=== PATIENT | male | born 1935 | race Caucasian/White ===

== ENCOUNTER 2020-09-05 15:32 | Outpatient (CLI) | payer SELFPAY | END 2020-09-05 15:33 | disposition EMS.NT | LOC: EMS 15:32 | PROVIDERS: ATTEND Surgery | DX: R53.1 Weakness (principal); R51.9 Headache, unspecified; R53.83 Other fatigue ==

== ENCOUNTER 2021-03-10 22:45 | Outpatient (CLI) | payer MEDICARE, OTHER | END 2021-03-10 22:46 | disposition short-term general hospital (02) | LOC: EMS 22:45 | DX: R42 Dizziness and giddiness (principal); R11.2 Nausea with vomiting, unspecified | CPT/HCPCS: A0425; A0429 ==

== ENCOUNTER 2021-11-27 05:55 | Outpatient (CLI) | payer MEDICARE, OTHER | END 2021-11-27 05:56 | disposition critical access hospital (66) | LOC: EMS 05:55 | DX: R42 Dizziness and giddiness (principal); R11.0 Nausea; I10 Essential (primary) hypertension | CPT/HCPCS: A0425; A0427 ==

== ENCOUNTER 2021-11-27 06:11 | Emergency (ER) | payer MEDICARE, OTHER ==
[2021-11-27] MEDS ORDERED: MECLIZINE 12.5 MG TABLET PO STA (06:31)
[2021-11-27] MEDS ORDERED: SODIUM CHLORIDE 0.9% 500 ML IV STA (06:32)
--- NOTE | 2021-11-27 06:35 | ED Physician Documentation ---
History of Present Illness - Stated complaint Stated Complaint: VERTIGO - Chief complaint Chief Complaint: Neuro - Additonal information Additional information: Patient is 86-year-old male presenting to the emergency department with chief complaint of vertigo. Woke this morning with acute onset severe vertigo, described as the room spinning around him. Associated nausea without vomiting. Denies previous episodes of vertigo. Denies head trauma. Reports history of hypertension for which he takes carvedilol, dyslipidemia for which she is on a statin, pacer placement several years ago. Currently anticoagulated on Eliquis. Denies any tinnitus, hearing loss, slurred speech, facial droop, focal or lateralizing neurologic deficit. Does report difficulties with balance at home. PD PAST MEDICAL HISTORY - Allergies Allergies/Adverse Reactions: Allergies Allergy/AdvReac Type Severity Reaction Status Date / Time No Known Drug Allergies Allergy Verified 11/27/21 06:26 PD ED PE NORMAL - Vitals Vital signs reviewed: Yes - General General: Alert and oriented X 3 - HEENT HEENT: Atraumatic, PERRL, EOMI, Pharynx benign, Dentition benign, Other - Neck Neck: Supple, no meningeal sign, No JVD, No bruit - Cardiac Cardiac: RRR, No gallop - Respiratory Respiratory: No respiratory distress, Clear bilaterally - Abdomen Abdomen: Normal bowel sounds, Non tender - Male Male : Deferred - Rectal Rectal: Deferred - Back Back: No CVA TTP - Derm Derm: Normal color - Extremities Extremities: No deformity - Neuro Neuro: Alert and oriented X 3, clinical educator 2-12 intact, No motor deficit, No sensory deficit, Normal speech, Other (Easily elicitable horizontal nystagmus.) - Psych Psych: Normal mood Results - Vitals Vitals: Vital Signs - 24 hr 11/27/21 11/27/21 11/27/21 06:10 06:30 06:40 Temperature 35.8 C L Heart Rate 72 72 71 Respiratory 12 13 20 Rate Blood Pressure 207/103 H 207/103 H 204/90 H O2 Saturation 94 95 96 Oxygen O2 Source Room air - EKG (time done) 0613 Rate: Rate (enter#) (60) Rhythm: NSR [place]: LAD Intervals: Normal MA, LBBB Ischemia: Other (No concordant ST segment elevations, concordant ST segment depressions or excessive discordance in any lead.) - Labs Labs: Laboratory Tests 11/27/21 11/27/21 06:37 06:37 WBC 4.4 L RBC 4.69 L Hgb 13.8 L Hct 41.6 L MCV 88.7 MCH 29.4 MCHC 33.2 RDW 14.2 Plt Count 185 MPV 9.0 Neut # (Auto) 2.9 Lymph # (Auto) 0.7 L [place] # (Auto) 0.6 Eos # (Auto) 0.2 Baso # (Auto) 0.0 Absolute Nucleated RBC 0.00 Nucleated RBC % 0.0 PT 13.9 H INR 1.2 PD MEDICAL DECISION MAKING - ED course Complexity details: d/w patient ED course: Patient is 86-year-old male with past medical significant for hypertension, dyslipidemia, chronic anticoagulation, pacer placement presenting to the emergency department with acute onset vertigo. Afebrile, hemodynamically stable on arrival to the emergency department. Obvious elicitable nystagmus that was consistently horizontal and was made worse with movement of the head and neck. HEENT exam otherwise negative. TMs were clearly visualized and there is no indication of cerumen impaction, or middle ear effusion. No other focal or lateralizing neurologic deficits appreciated on exam. EKG as outlined above demonstrated a left bundle branch block morphology without indications of acute cardiac ischemia. I have ordered for comprehensive labs as well as head CT. I have ordered a small fluid bolus as well as meclizine. Patient received Zofran prior to arrival and did report that this helped his nausea somewhat. I will be signing him out to the oncoming physician, please see their documentation for further detail. Departure - Departure Clinical Impression: Vertigo
[2021-11-27 06:41] VITALS: BP 204/90
[2021-11-27 06:42] LABS: BASOPHILS % (AUTO) 0.2 %; EOSINOPHILS # (AUTO) 0.2 10^3/uL (0.0-0.7); EOSINOPHILS % (AUTO) 4.5 %; HCT - HEMATOCRIT 41.6 % (42.0-52.0); HGB - HEMOGLOBIN 13.8 g/dL (14.0-18.0); LYMPHOCYTES # (AUTO) 0.7 10^3/uL (1.5-3.5); LYMPHOCYTES % (AUTO) 15.4 %; MEAN CORPUSCULAR HEMOGLOBIN 29.4 pg (27.0-31.0); MEAN CORPUSCULAR HGB CONC 33.2 g/dL (32.0-36.0); MEAN CORPUSCULAR VOLUME 88.7 fL (80.0-94.0); MONOCYTES # (AUTO) 0.6 10^3/uL (0.0-1.0); MONOCYTES % (AUTO) 13.4 %; NEUTROPHILS # (AUTO) 2.9 10^3/uL (1.5-6.6); NEUTROPHILS % (AUTO) 66.3 %; PLT - PLATELET COUNT 185 10^3/uL (130-450); RED BLOOD COUNT 4.69 10^6/uL (4.70-6.10); RED CELL DISTRIBUTION WIDTH 14.2 % (12.0-15.0); WHITE BLOOD COUNT 4.4 x10^3/uL (4.8-10.8)
[2021-11-27 06:48] LABS: INR 1.2 (0.8-1.2); PT - PROTHROMBIN TIME 13.9 secs (9.9-12.6)
[2021-11-27 07:06] LABS: ALBUMIN 3.7 g/dL (3.2-5.5); ALBUMIN/GLOBULIN RATIO 1.1 (1.0-2.2); BILIRUBIN,TOTAL 1.2 mg/dL (0.2-1.0); CALCIUM 9.1 mg/dL (8.5-10.3); CREATININE 1.1 mg/dL (0.6-1.2); TOTAL PROTEIN 7.1 g/dL (6.7-8.2)
--- NOTE | 2021-11-27 07:36 | CT Report ---
PROCEDURE: HEAD WO INDICATIONS: Acute onset vertigo TECHNIQUE: Noncontrast 4.5 mm thick angled axial sections acquired from the foramen magnum to the vertex. For r adiation dose reduction, the following was used: automated exposure control, adjustment of mA and/or kV according to patient size. COMPARISON: None. FINDINGS: Image quality: Excellent. CSF spaces: Basal cisterns are patent. No extra-axial fluid collections. Ventricles are normal in size and shape. Brain: No midline shift. No intracranial masses or hemorrhage. Younger-white matter interface is norm al. Age-related volume loss and severe small vessel ischemic change. Bilateral intracranial carotid calcifications. Vertebral artery calcifications. Skull and face: Calvarium and visualized facial bones are intact, without suspicious lesions. Sinuses: Visualized sinuses and mastoids are clear. IMPRESSION: 1. No evidence acute stroke, hemorrhage, or mass. 2. Age-related volume loss and severe small vessel ischemic change. Reviewed by: Karlos Soni MD on 11/27/2021 7:34 AM PST Approved by: Karlos Soni MD on 11/27/2021 7:34 AM PST Station ID: [id number]
--- NOTE | 2021-11-27 07:55 | ED Physician Documentation ---
ED Addendum - Addendum Addendum: 11/27/21 07:54 Patient signed out to me by Dr. Cerrato at shift change. Briefly this is an 86-year-old gentleman who is fully anticoagulated who presented with abrupt onset vertigo upon waking. Of course central causes considered and a CT was ordered by Dr. Cerrato and negative for acute pathology. On my evaluation at 7:45 AM he is completely asymptomatic without persistent vertigo. He was ambulated in the hallway without any evidence of ataxia or disequilibrium. He was counseled on close return precautions. Disposition: Discharged home Condition: Stable Diagnosis: 1. Vertigo
== END 2021-11-27 08:13 | disposition home or self-care (01) ==
LOC: EDUNIT# → ED 06:11
DX: R42 Dizziness and giddiness (principal); R11.0 Nausea; I44.7 Left bundle-branch block, unspecified; I10 Essential (primary) hypertension; E78.5 Hyperlipidemia, unspecified; Z95.0 Presence of cardiac pacemaker; Z79.01 Long term (current) use of anticoagulants
CPT/HCPCS: 36415; 70450; 80053; 85025; 85610; 93005; 99283; 99284; A9270

== ENCOUNTER 2021-12-25 11:48 | Emergency (ER) | payer MEDICARE, OTHER ==
[2021-12-25] MEDS ORDERED: IOVERSOL 320 100 ML VIAL IVP ONE ×2 (13:03→15:16)
--- NOTE | 2021-12-25 13:05 | ED Physician Documentation ---
History of Present Illness - Stated complaint Stated Complaint: CONFUSION - Chief complaint Chief Complaint: Neuro - History obtained from History obtained from: Patient - History of Present Illness Timing: Today Pain level max: 0 Pain level now: 0 - Additonal information Additional information: 86-year-old male brought in by family today for confusion. They state that the confusion has been worsening over the past 6 months. He has been seen by his doctor several times for same. They recently changed doctors and moved from [facility] to [place]. They state that last night he could not remember what his cell phone was called. Today he forgot how to drive and appeared confused. This lasted about 20 to 30 minutes. The patient and his state that he has had increasing difficulty with memory for the past 6 months or so. They do not know what testing he has had performed. 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 They do not know if he has had any CAT scans or MRIs. Review of Systems Constitutional: denies: Fever, Chills GI: denies: Vomiting, Diarrhea Skin: denies: Rash Musculoskeletal: denies: Neck pain, Back pain Neurologic: denies: Focal weakness, Numbness, Seizure, Headache, Head injury, LOC PD PAST MEDICAL HISTORY - Past Medical History Cardiovascular: Hypertension, High cholesterol Psych: Depression, Anxiety Musculoskeletal: Osteoarthritis - Past Surgical History Past Surgical History: Yes Cardiovascular: Pacemaker, Angioplasty HEENT: Cataracts - Present Medications Home Medications: Ambulatory Orders Medication Instructions Recorded Confirmed Apixaban [Eliquis] 5 mg PO BID 11/27/21 11/27/21 Benazepril HCl 40 mg PO BID 11/27/21 11/27/21 Carvedilol [Coreg] 25 mg PO BID 11/27/21 11/27/21 Carvedilol [Coreg] 25 mg PO BID 11/27/21 11/27/21 Cyanocobalamin (Vitamin B-12) 500 mg PO DAILY 11/27/21 11/27/21 [Vitamin B-12] Fluoxetine HCl [Prozac] 20 mg PO DAILY 11/27/21 11/27/21 Meclizine HCl [Motion Sickness] 25 mg PO Q6H PRN #10 tablet 11/27/21 [place]-3/Dha/Epa/Fish Oil [Fish Oil 1 cap PO DAILY 11/27/21 11/27/21 1,000 mg Softgel] Ondansetron Odt [Zofran] 4 mg TL Q6H PRN #10 tablet 11/27/21 Oxybutynin [Ditropan] 5 mg PO BID 11/27/21 11/27/21 Rosuvastatin Calcium [Crestor] 10 mg PO DAILY 11/27/21 11/27/21 Spironolactone [Aldactone] 25 mg PO DAILY 11/27/21 11/27/21 glucosamine HCL [Glucosamine HCl] 1,500 mg PO DAILY 11/27/21 11/27/21 - Allergies Allergies/Adverse Reactions: Allergies Allergy/AdvReac Type Severity Reaction Status Date / Time No Known Drug Allergies Allergy Verified 12/25/21 12:03 - Social History Does the pt smoke?: No Smoking Status: Never smoker Does the pt drink ETOH?: Yes Does the pt have substance abuse?: No - Immunizations Immunizations are current?: Yes - POLST Patient has POLST: No PD ED PE NORMAL - Vitals Vital signs reviewed: Yes - General General: Alert and oriented X 3, No acute distress, Well developed/nourished - HEENT HEENT: PERRL, Moist mucous membranes, Pharynx benign - Neck Neck: Supple, no meningeal sign - Cardiac Cardiac: RRR, Strong equal pulses - Respiratory Respiratory: No respiratory distress, Clear bilaterally - Abdomen Abdomen: Soft, Non tender, Non distended - Derm Derm: Warm and dry - Extremities Extremities: No edema, No calf tenderness / cord - Neuro Neuro: Alert and oriented X 3, layboy operator 2-12 intact, No motor deficit, No sensory deficit, Normal speech Eye Opening: Spontaneous Motor: Obeys Commands Verbal: Oriented GCS Score: 15 - Psych Psych: Normal mood, Normal affect Results - Vitals Vitals: Vital Signs - 24 hr 12/25/21 12/25/21 12/25/21 11:58 14:11 14:56 Temperature 37.2 C Heart Rate 63 65 67 Respiratory 21 27 H 24 Rate Blood Pressure 190/87 H 203/80 H 165/91 H O2 Saturation 98 98 99 Oxygen O2 Source Room air - EKG (time done) 1254 Rate: Rate (enter#) (65) Rhythm: Paced [place]: Normal Intervals: Normal CT QRS: Normal Ischemia: Normal ST segments - Labs Labs: Laboratory Tests 12/25/21 12/25/21 12/25/21 13:02 13:02 13:54 WBC 7.1 RBC 4.39 L Hgb 12.9 L Hct 39.2 L MCV 89.3 MCH 29.4 MCHC 32.9 RDW 14.5 Plt Count 175 MPV 9.1 Neut # (Auto) 4.9 Lymph # (Auto) 1.0 L [place] # (Auto) 0.9 Eos # (Auto) 0.2 Baso # (Auto) 0.0 Absolute Nucleated RBC 0.00 Nucleated RBC % 0.0 Sodium 132 L Potassium 4.1 Chloride 98 L Carbon Dioxide 27 Anion Gap 7.0 BUN 25 H Creatinine 1.2 Estimated GFR (MDRD) 57 L Glucose 97 Calcium 9.0 Total Bilirubin 1.7 H AST 44 H ALT 52 Alkaline Phosphatase 126 H Total Protein 6.7 Albumin 3.5 Globulin 3.2 Albumin/Globulin Ratio 1.1 Lipase 27 Urine Color YELLOW Urine Clarity CLEAR Urine pH 6.0 Ur Specific [place] 1.010 Urine Protein NEGATIVE Urine Glucose (UA) NEGATIVE Urine Ketones NEGATIVE Urine Occult Blood SMALL H Urine Nitrite NEGATIVE Urine Bilirubin NEGATIVE Urine Urobilinogen 0.2 (NORMAL) Ur Leukocyte Esterase NEGATIVE Urine RBC 6-10 H Urine WBC 0-3 Ur Squamous Epith Cells RARE Squamous Urine Bacteria None Seen Ur Microscopic Review INDICATED Urine Culture Comments NOT INDICATED Urine Opiates Screen NEGATIVE Ur Oxycodone Screen NEGATIVE Urine Methadone Screen NEGATIVE Ur Propoxyphene Screen NEGATIVE Ur Barbiturates Screen NEGATIVE Ur Tricyclics Screen NEGATIVE Ur Phencyclidine Scrn NEGATIVE Ur Amphetamine Screen NEGATIVE U Methamphetamines Scrn NEGATIVE U Benzodiazepines Scrn NEGATIVE Urine Cocaine Screen NEGATIVE U Cannabinoids Screen NEGATIVE - Rads (name of study) angio head Radiology: Final report received, EMP read contemporaneously, See rad report angio neck Radiology: Final report received, EMP read contemporaneously, See rad report PD MEDICAL DECISION MAKING - ED course Complexity details: reviewed results, re-evaluated patient, considered differential, d/w patient, d/w family ED course: Patient is asymptomatic and at his usual baseline in the emergency department. Unclear etiology of his symptoms. Angiograms of the head and neck are without acute abnormality. NIH stroke scale of 0 currently. The symptoms have been progressing for the past 6 months. Possible dementia? We will have him follow- up with his doctor for outpatient MRI. MRI unavailable here today. Did discuss observation for serial neurological exams and MRI tomorrow. Patient and declined this. Patient will not drive until released by his doctor Patient and family counseled regarding signs and symptoms for which I believe and urgent re- evaluation would be necessary. Patient with good understanding of and agreement to plan and is comfortable going home at this time This document was made in part using voice recognition software. While efforts are made to proofread this document, sound alike and grammatical errors may occur. Departure - Departure Disposition: 01 Home, Self Care Clinical Impression: Altered mental status Qualifiers: Altered mental status type: transient alteration of awareness Qualified Code(s): R40.4 - Transient alteration of awareness Condition: Good Instructions: ED Altered Loc Follow-Up: Abrahan Hale MD [Primary Care Provider] - Tomorrow Comments: Please follow-up with Dr. Hale for further care. It is recommended that you have an MRI of your brain scheduled this week. Please return if he worsens. The angiogram of his head and neck do not show significant abnormalities at this time. The cause of the symptoms today is unclear. It is also possible that he is developing some dementia. You can discuss this further with Dr. Hale. He should not drive until cleared by Dr. Hale. Discharge Date/Time: 12/25/21 15:37 NIHSS - Time Time: 12:32 - Level of Consciousness Level of consciousness: (0) Alert, Keenly responsive LOC Questions: (0) Answers both Q's correct LOC Commands: (0) Performs both correctly - Gaze Best Gaze: (0) Normal - Visual Visual: (0) No loss - Facial Palsy Facial Palsy: (0) Normal, symmetrical movement - Motor Arms (both separate) Motor Arm (right): (0) No drift Motor Arm (left): (0) No drift - Motor Legs (both separate) Motor Leg (right): (0) No drift Motor Leg (left): (0) No drift - Limb Ataxia Limb Ataxia: (0) Absent - Sensory Sensory: (0) Normal - Best Language Best Language: (0) No aphasia - Dysarthria Dysarthria: (0) Normal - Extinction and Inattention (formally neg Extinction and inattention: (0) No abnormality - Total Score/Results Total Score/Result: 0
[2021-12-25 13:07] LABS: BASOPHILS % (AUTO) 0.1 %; EOSINOPHILS # (AUTO) 0.2 10^3/uL (0.0-0.7); EOSINOPHILS % (AUTO) 3.1 %; HCT - HEMATOCRIT 39.2 % (42.0-52.0); HGB - HEMOGLOBIN 12.9 g/dL (14.0-18.0); LYMPHOCYTES % (AUTO) 14.3 %; MEAN CORPUSCULAR HEMOGLOBIN 29.4 pg (27.0-31.0); MEAN CORPUSCULAR HGB CONC 32.9 g/dL (32.0-36.0); MEAN CORPUSCULAR VOLUME 89.3 fL (80.0-94.0); MEAN PLATELET VOLUME 9.1 fL (7.4-11.4); MONOCYTES # (AUTO) 0.9 10^3/uL (0.0-1.0); MONOCYTES % (AUTO) 12.9 %; NEUTROPHILS # (AUTO) 4.9 10^3/uL (1.5-6.6); NEUTROPHILS % (AUTO) 69.5 %; PLT - PLATELET COUNT 175 10^3/uL (130-450); RED BLOOD COUNT 4.39 10^6/uL (4.70-6.10); RED CELL DISTRIBUTION WIDTH 14.5 % (12.0-15.0); WHITE BLOOD COUNT 7.1 x10^3/uL (4.8-10.8)
[2021-12-25 13:38] LABS: ALBUMIN 3.5 g/dL (3.2-5.5); ALBUMIN/GLOBULIN RATIO 1.1 (1.0-2.2); BILIRUBIN,TOTAL 1.7 mg/dL (0.2-1.0); CREATININE 1.2 mg/dL (0.6-1.2); POTASSIUM 4.1 mmol/L (3.5-5.0); TOTAL PROTEIN 6.7 g/dL (6.7-8.2)
[2021-12-25 13:59] LABS: MUDS CUTOFF CONCENTRATIONS CUTOFF CONC BELOW:
[2021-12-25 14:03] LABS: BILIRUBIN,URINE NEGATIVE (NEGATIVE); GLUCOSE, URINE (UA) NEGATIVE (NEGATIVE); KETONES,URINE (UA) NEGATIVE (NEGATIVE); LEUKOCYTE ESTERASE, URINE NEGATIVE (NEGATIVE); NITRITE,URINE NEGATIVE (NEGATIVE); OCCULT BLOOD,URINE SMALL (NEGATIVE); PROTEIN,URINE NEGATIVE (NEGATIVE); UROBILINOGEN,URINE 0.2 (NORMAL) E.U./dL (NORMAL)
[2021-12-25 14:07] LABS: CLARITY,URINE CLEAR (CLEAR)
[2021-12-25 14:21] LABS: BACTERIA,URINE None Seen /HPF (None Seen); SQUAMOUS EPITHELIAL CELL,UR RARE Squamous (<= Few); WBC,URINE 0-3 /HPF (0-3)
[2021-12-25 14:22] LABS: AMPHETAMINE SCREEN,URINE NEGATIVE (NEGATIVE); BARBITURATE SCREEN,UR NEGATIVE (NEGATIVE); BENZODIAZEPINES SCREEN, URINE NEGATIVE (NEGATIVE); COCAINE SCREEN URINE NEGATIVE (NEGATIVE); METHADONE SCREEN, URINE NEGATIVE (NEGATIVE); METHAMPHETAMINES SCREEN, URINE NEGATIVE (NEGATIVE); OPIATE SCREEN, URINE NEGATIVE (NEGATIVE); OXYCODONE SCREEN, URINE NEGATIVE (NEGATIVE); PROPOXYPHENE SCREEN, URINE NEGATIVE (NEGATIVE); THC CANNABINOID SCREEN, URINE NEGATIVE (NEGATIVE); TRICYCLIC ANTIDEPRESSANT,URINE NEGATIVE (NEGATIVE)
[2021-12-25 14:57] VITALS: BP 165/91
--- NOTE | 2021-12-25 15:06 | CT Report ---
PROCEDURE: ANGIO NECK W INDICATIONS: disorientation CONTRAST: IV CONTRAST: Optiray 320 ml: 80 PO CONTRAST: *NO PO CONTRAST TECHNIQUE: After the administration of intravenous contrast, 1.5 mm axial sections acquired from the aortic arch to the [place] of [place]. Coronal 3-D maximum intensity projection (MIP) and/or volume rendering ref ormats were then performed. For radiation dose reduction, the following was used: automated exposur e control, adjustment of mA and/or kV according to patient size. COMPARISON: Correlation is made with the accompanying head CT angiogram, 12/25/2021. FINDINGS: Image quality: Excellent. Carotid system: The great vessels demonstrate a conventional anatomy as they arise from the aortic a rch. The origins of the common carotid arteries appear patent. The common carotid arteries demonstr ate normal calibers and courses. The bifurcation regions demonstrate focal atherosclerotic calcifica tion and irregularity, with approximately 50% narrowing on each side. The more distal internal caroti d arteries demonstrate normal course and caliber. Posterior circulation: The origins of the vertebral arteries appear patent. The more superior porti ons of the vertebral arteries demonstrate normal course and caliber. They join to form a normal appe aring basilar artery. Soft tissues: Visualized neck soft tissues demonstrate no suspicious abnormalities. The thyroid is normal in size and there are no incidental findings. Bones: No suspicious bony lesions. Visualized cervical spine appears normally aligned. Moderate c ervical spine degenerative changes are seen. IMPRESSION: No hemodynamically significant stenosis can be seen within the arteries of the neck. Focal atherosclerotic irregularity is seen involving the carotid bifurcation regions, with approximat tona 50% narrowing seen involving both proximal internal carotid arteries. The estimate of stenosis included in the report of the imaging study was calculated using the NASCET method Reviewed by: Luke Sandra MD on 12/25/2021 2:05 PM [facility] Approved by: Luke Sandra MD on 12/25/2021 2:05 PM [facility] Station ID: [id number]
--- NOTE | 2021-12-25 15:14 | CT Report ---
PROCEDURE: ANGIO HEAD W/WO INDICATIONS: disorientation CONTRAST: IV CONTRAST: Optiray 320 ml: 80 PO CONTRAST: *NO PO CONTRAST TECHNIQUE: Precontrast 4.5 mm thick angled axial sections acquired from the foramen magnum to the vertex. Afte r the administration of intravenous contrast, 1 mm thick sections acquired through the [place] is. Postcontrast 4.5 mm thick sections then re-acquired from the foramen magnum to the vertex. 3-di mensional [id number]-[id number] (MIP) and/or volume rendering reformats were acquired of the c entral intracranial vasculature. For radiation dose reduction, the following was used: automated ex posure control, adjustment of mA and/or kV according to patient size. COMPARISON: 11/27/2021. Correlation is also made with the accompanying neck CT angiogram, 12/25/2021. FINDINGS: Image quality: There is streak artifact seen through the skull base. Anterior circulation: Intracranial internal carotid arteries are normal in size and flow. Note is m sakina of a hypoplastic right A1 segment, with a correspondingly robust left A1 segment. 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 The flow within the paired anterior ce rebral arteries is otherwise normal and symmetric. The flow within the middle cerebral arteries is n ormal and symmetric. The anterior communicating artery is seen. No aneurysms are seen. Posterior circulation: There is focal atherosclerosis calcification, with approximately 50% narrowin g involving the right V4 segment. Visualized portions of the vertebral arteries otherwise demonstrat e normal caliber, and join to form a normal appearing basilar artery. Flow within the posterior cere bral arteries is normal and symmetric. No aneurysms are seen. CSF spaces: Ventricles are normal in size and shape. Basal cisterns are patent. No extra-axial flu id collections. Brain: No midline shift. No intracranial bleeds or masses. Younger-white matter interface appears int act. Age-appropriate brain parenchymal volume loss and chronic small vessel ischemic change can be s een. Skull and face: Calvarium and facial bones appear intact, without suspicious lesions. Sinuses: There is complete opacification seen of the right sphenoid sinus. At least moderate mucosal thickening is seen within the left frontal sinus and within the left anterior ethmoid air cells. Prom inent mucous retention cysts are seen within the left maxillary sinus. No significant abnormal fluid can be seen within the mastoid air cells. IMPRESSION: No significant, acute abnormality is seen. 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 Focal calcification can be seen involving the right V4 segment, with approximately 50% narrowing. If there is strong clinical concern for a stroke, please consider a dedicated brain MRI for further e valuation (assuming that there is no contraindication to MRI). Multifocal prominent paranasal sinus disease can be seen. Reviewed by: Luke Sandra MD on 12/25/2021 2:12 PM [facility] [place] Approved by: Luke Sandra MD on 12/25/2021 2:12 PM [facility] [place] Station ID: [id number]
== END 2021-12-25 15:37 | disposition home or self-care (01) ==
LOC: ED 11:48
DX: R40.4 Transient alteration of awareness (principal); I10 Essential (primary) hypertension; Z95.0 Presence of cardiac pacemaker; Z79.01 Long term (current) use of anticoagulants
CPT/HCPCS: 36415; 70496; 70498; 80053; 80306; 81001; 83690; 85025; 93005; 99283; 99284; Q9967; 81003; 87086

== ENCOUNTER 2022-06-15 21:51 | Outpatient (CLI) | payer MEDICARE, OTHER | END 2022-06-15 21:52 | disposition EMS.NT | LOC: EMS 21:51 | DX: R10.31 Right lower quadrant pain (principal); M25.551 Pain in right hip ==

== ENCOUNTER 2022-06-15 23:07 | Emergency (ER) | payer MEDICARE, OTHER ==
--- NOTE | 2022-06-16 00:51 | XRAY Report ---
PROCEDURE: Hip w/Pelvis 2-3V RT INDICATIONS: GLF 5 DAYS AGO, WORSENING R HIP/GROIN PAIN TECHNIQUE: AP pelvis with lateral view(s) of the right hip(s). COMPARISON: None. FINDINGS: Rotated exam which slightly limits sensitivity. No fracture or dislocation demonstrated. IMPRESSION: No evidence of fracture. Reviewed by: Ventura Marino MD on 06/16/2022 12:56 AM PDT Approved by: Ventura Marino MD on 06/16/2022 12:56 AM PDT Station ID: [id number]
--- NOTE | 2022-06-16 01:46 | CT Report ---
PROCEDURE: PELVIS WO INDICATIONS: SEVERE R HIP PAIN, NEGATIVE XR TECHNIQUE: Noncontrast 3 mm axial sections acquired through the bony pelvis, with coronal and sagittal reformatt ing. For radiation dose reduction, the following was used: automated exposure control, adjustment of mA and/or kV according to patient size. COMPARISON: None. FINDINGS: There is no fracture identified. The right psoas is markedly enlarged with adjacent fat stranding. Ap pearance is consistent with an intramuscular hematoma in the right psoas. There are some areas of dis crete hypodensity which likely represent pooling blood products of varying age. IMPRESSION: Right psoas intramuscular hematoma and edema. CT angiogram recommended to exclude active extravasatio n given the patient's history of anticoagulating pharmacotherapy. Reviewed by: Ventura Marino MD on 06/16/2022 1:45 AM PDT Approved by: Ventura Marino MD on 06/16/2022 1:45 AM PDT Station ID: [id number]
[2022-06-16 02:03] LABS: BASOPHILS % (AUTO) 0.4 %; EOSINOPHILS # (AUTO) 0.2 10^3/uL (0.0-0.7); EOSINOPHILS % (AUTO) 2.2 %; HCT - HEMATOCRIT 36.2 % (42.0-52.0); LYMPHOCYTES # (AUTO) 1.2 10^3/uL (1.5-3.5); LYMPHOCYTES % (AUTO) 17.6 %; MEAN CORPUSCULAR HEMOGLOBIN 29.4 pg (27.0-31.0); MEAN CORPUSCULAR HGB CONC 33.1 g/dL (32.0-36.0); MEAN CORPUSCULAR VOLUME 88.7 fL (80.0-94.0); MEAN PLATELET VOLUME 8.8 fL (7.4-11.4); MONOCYTES # (AUTO) 0.7 10^3/uL (0.0-1.0); MONOCYTES % (AUTO) 10.4 %; NEUTROPHILS # (AUTO) 4.6 10^3/uL (1.5-6.6); NEUTROPHILS % (AUTO) 68.7 %; PLT - PLATELET COUNT 217 10^3/uL (130-450); RED BLOOD COUNT 4.08 10^6/uL (4.70-6.10); RED CELL DISTRIBUTION WIDTH 14.2 % (12.0-15.0); WHITE BLOOD COUNT 6.8 x10^3/uL (4.8-10.8)
[2022-06-16 02:13] LABS: ALBUMIN 3.6 g/dL (3.2-5.5); BILIRUBIN,TOTAL 1.2 mg/dL (0.2-1.0); CALCIUM 9.3 mg/dL (8.5-10.3); CREATININE 1.3 mg/dL (0.6-1.2); TOTAL PROTEIN 7.1 g/dL (6.7-8.2)
[2022-06-16] MEDS ORDERED: oxyCODONE/ACET 5/325 Prepack 4 PO STA (03:50)
--- NOTE | 2022-06-16 03:50 | ED Physician Documentation ---
History of Present Illness - Stated complaint Stated Complaint: RT GROIN/HIP PX,HIP INJ - Chief complaint Chief Complaint: Trauma Ext - History obtained from History obtained from: Patient, Family - History of Present Illness Timing: How many days ago (5) - Additonal information Additional information: 87-year-old male with history of Eliquis use presents by private vehicle for evaluation of acute worsening of right hip/groin pain patient states that he fell 5 days ago [place] He was evaluated at that time by EMS staff, he declined any work-up and was sent home. He states that he had some pain at that time but it was bearable and he was able to walk. He states that today he sat for approximately 3 hours playing cards with his at home, when he stood up he felt an acute worsening of his hip and groin pain that was intolerable. He states that he is only able to bear weight with extreme difficulty and told his to bring him to the ER for evaluation. Patient denies numbness, weakness, tingling. Denies headache, neck pain, blurred vision, any other complaints at this time. Review of Systems Ten Systems: 10 systems reviewed and negative Constitutional: denies: Fever, Chills, Myalgias Cardiac: denies: Chest pain / pressure, Palpitations Respiratory: denies: Dyspnea, Cough Musculoskeletal: reports: Joint pain (R hip) Neurologic: denies: Generalized weakness, Focal weakness, Numbness, Headache, Head injury PD PAST MEDICAL HISTORY - Past Medical History Cardiovascular: Hypertension, High cholesterol Psych: Depression, Anxiety Musculoskeletal: Osteoarthritis - Past Surgical History Past Surgical History: Yes Cardiovascular: Pacemaker, Angioplasty HEENT: Cataracts - Present Medications Home Medications: Ambulatory Orders Medication Instructions Recorded Confirmed Apixaban [Eliquis] 5 mg PO BID 11/27/21 11/27/21 Benazepril HCl 40 mg PO BID 11/27/21 11/27/21 Carvedilol [Coreg] 25 mg PO BID 11/27/21 11/27/21 Carvedilol [Coreg] 25 mg PO BID 11/27/21 11/27/21 Cyanocobalamin (Vitamin B-12) 500 mg PO DAILY 11/27/21 11/27/21 [Vitamin B-12] Fluoxetine HCl [Prozac] 20 mg PO DAILY 11/27/21 11/27/21 Meclizine HCl [Motion Sickness] 25 mg PO Q6H PRN #10 tablet 11/27/21 [place]-3/Dha/Epa/Fish Oil [Fish Oil 1 cap PO DAILY 11/27/21 11/27/21 1,000 mg Softgel] Ondansetron Odt [Zofran] 4 mg TL Q6H PRN #10 tablet 11/27/21 Oxybutynin [Ditropan] 5 mg PO BID 11/27/21 11/27/21 Rosuvastatin Calcium [Crestor] 10 mg PO DAILY 11/27/21 11/27/21 Spironolactone [Aldactone] 25 mg PO DAILY 11/27/21 11/27/21 glucosamine HCL [Glucosamine HCl] 1,500 mg PO DAILY 11/27/21 11/27/21 Oxycodone HCl/Acetaminophen 1 - 2 each PO Q6H PRN #10 tablet 06/16/22 [Percocet 5-325 mg Tablet] - Allergies Allergies/Adverse Reactions: Allergies Allergy/AdvReac Type Severity Reaction Status Date / Time No Known Drug Allergies Allergy Verified 06/15/22 23:16 - Social History Does the pt smoke?: No Smoking Status: Never smoker Does the pt drink ETOH?: Yes Does the pt have substance abuse?: No - Immunizations Immunizations are current?: Yes - POLST Patient has POLST: No PD ED PE NORMAL - Vitals Vital signs reviewed: Yes - General General: Alert and oriented X 3, No acute distress, Well developed/nourished - HEENT HEENT: Atraumatic, PERRL, EOMI, Ears normal - Neck Neck: Supple, no meningeal sign, No bony TTP, C-Spine cleared by NEXUS criteria - Cardiac Cardiac: RRR, No murmur, Strong equal pulses - Respiratory Respiratory: No respiratory distress, Clear bilaterally - Abdomen Abdomen: Soft, Non tender, Non distended - Male 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 Old bruising R thigh) - Rectal Rectal: Deferred - Back Back: No CVA TTP, No spinal TTP - Derm Derm: Warm and dry, No rash - Extremities Extremities: No deformity, No tenderness to palpate, Normal ROM s pain, No edema, Other (No reproducible tenderness. Healing bruise R thigh) - Neuro Neuro: Alert and oriented X 3, time recorder 2-12 intact, No motor deficit, No sensory deficit - Psych Psych: Normal mood, Normal affect Results - Vitals Vitals: Vital Signs - 24 hr 06/15/22 06/16/22 23:10 04:04 Temperature 36.7 C Heart Rate 64 70 Respiratory 14 18 Rate Blood Pressure 119/61 115/65 O2 Saturation 97 98 Oxygen O2 Source Room air - Labs Labs: Laboratory Tests 06/16/22 06/16/22 01:56 01:56 WBC 6.8 RBC 4.08 L Hgb 12.0 L Hct 36.2 L MCV 88.7 MCH 29.4 MCHC 33.1 RDW 14.2 Plt Count 217 MPV 8.8 Neut # (Auto) 4.6 Lymph # (Auto) 1.2 L Teller # (Auto) 0.7 Eos # (Auto) 0.2 Baso # (Auto) 0.0 Absolute Nucleated RBC 0.00 Nucleated RBC % 0.0 Sodium 127 L Potassium 5.0 Chloride 95 L Carbon Dioxide 25 Anion Gap 7.0 BUN 31 H Creatinine 1.3 H Estimated GFR (MDRD) 52 L Glucose 179 H Calcium 9.3 Total Bilirubin 1.2 H AST 55 H ALT 59 Alkaline Phosphatase 190 H Total Protein 7.1 Albumin 3.6 Globulin 3.5 Albumin/Globulin Ratio 1.0 PD MEDICAL DECISION MAKING - ED course Complexity details: reviewed results, re-evaluated patient, considered differential, d/w patient ED course: Worsening pain after ground-level fall 5 days ago. Able to stand without too much difficulty. Old bruising noted on thigh. No obvious deformity, no reproducible tenderness to palpation. No hernias. X-ray negative. Will order CT. CT shows no acute fracture, however there is a hematoma in the psoas region on the right side. Given the patient's history of Eliquis radiologist recommended angio to evaluate for active bleed or expanding hematoma. Patient updated. CTA shows hematoma without active bleed. Patient given a copy of his CT results as they show a possible mass on one of his kidneys. Given prescription for pain . PCP follow-up advised as soon as possible. Patient states that he will be able to function at home with his 's assistance. Departure - Departure Disposition: Home, Self Care Clinical Impression: Psoas hematoma, right, secondary to anticoagulant therapy Qualifiers: Encounter type: initial encounter Qualified Code(s): S30.1XXA - Contusion of abdominal wall, initial encounter Condition: Stable Instructions: ED Hematoma Prescriptions: Oxycodone HCl/Acetaminophen [Percocet 5-325 mg Tablet] 1 - 2 each PO Q6H PRN #10 tablet PRN Reason: pain Comments: FOLLOW UP WITH YOUR PRIMARY CARE PHYSICIAN SOON POSSIBLE. TAKE ALL MEDICATIONS PRESCRIBED. AVOID STRENUOUS ACTIVITIES Discharge Date/Time: 06/16/22 04:04
[2022-06-16 04:05] VITALS: BP 115/65
--- NOTE | 2022-06-16 08:15 | CT Report ---
PROCEDURE: ANGIO ABDOMEN/PELVIS W INDICATIONS: PSOAS MUSCLE HEMATOMA ON ELIQUIS TECHNIQUE: After the administration of contrast, 5 mm thick sections acquired from the diaphragms to the sym physis. 5 mm thick coronal and sagittal reformats were acquired. For radiation dose reduction, the following was used: automated exposure control, adjustment of mA and/or kV according to patient size . COMPARISON: None. FINDINGS: Image quality: Excellent. ABDOMEN: Lung bases: Mild bibasilar atelectasis, otherwise the lung bases are clear. Heart size is mildly enl arged. Coronary arteries have atherosclerotic calcifications. There are calcifications of the aortic valve and mitral valve.. 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 No activ e extravasation is present. Mesenteric arteries: The celiac trunk is widely patent. However there are mild to moderate areas of n arrowing within the proximal hepatic artery and splenic artery. There is also mild to moderate lumina l narrowing at the origin of the superior mesenteric artery and severe luminal narrowing at the origi n of the inferior mesenteric artery. Moderate to severe narrowing of the proximal right renal artery is present with no significant luminal narrowing identified within the left renal artery. Right pelvi c arteries: Left pelvic arteries: Solid organs: Liver: The liver is slightly nodular in contour suggesting underlying hepatic disease with possible e diamond cirrhosis. Please correlate with clinical findings and labs. Biliary: Gallstones are identified. No wall thickening or pericholecystic fluid. [] Pancreas: The pancreas has no mass or ductal dilatation. No surrounding inflammation. Spleen: The spleen has a 1 cm indeterminate low-density lesion in the posterior aspect, likely benign . Adrenal glands: No hypertrophy or nodules. Kidneys: No obstructive calculus or hydronephrosis. No solid mass. Both kidneys have multiple exophyt ic simple renal cysts, the largest on the right measuring 5.7 x 6.1 x 4.3 cm. In addition there is a hyperdense lesion arising from the lateral pole of the right kidney which appears to demonstrate hete rogenous enhancement suspicious for a solid renal mass measuring 2.3 x 2.4 x 2.2 cm; however this cou ld also be a hemorrhagic cyst. Bowel: There is a small to moderate-sized hiatal hernia. The stomach is normal. The small bowel has a normal caliber and appearance. The terminal ileum is normal. The large bowel has diverticulosis wi thout evidence of diverticulitis. Free air/free fluid: No free air or free fluid. Abdominal wall: No abdominal wall mass or hernia. Retroperitoneum: There is enlargement of the right psoas, iliac's, and iliopsoas musculature consiste nt with history of intramuscular hematoma. This hematoma extends to the anterior musculature of the r ight thigh. Aorta and inferior vena cava are normal in size. Lymph nodes: No adenopathy. Bones: No suspicious bony lesions. No vertebral body compression fractures. PELVIS: Genitourinary: Bladder wall thickness is normal. Miscellaneous: No inguinal hernias or adenopathy. Bones: No suspicious bony lesions. No vertebral body compression fractures. IMPRESSION: 1. Hematoma involving the right psoas common iliac is, and iliopsoas musculature extending into the r ight anterior thigh. No active extravasation into this hematoma is identified. 2. 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 Extensive atheroscle rotic calcification throughout the aorta and its branches with multiple areas of stenosis as above. 3. Possible solid right renal mass, recommend further evaluation with renal protocol CT or MR. Ultras ound would also be helpful. 4. Additional findings as above. Findings above correspond with preliminary findings by [facility]. Reviewed by: Kaushik Fisher on 06/16/2022 8:13 AM PDT Approved by: Kaushik Fisher on 06/16/2022 8:13 AM PDT Station ID: [id number]
== END 2022-06-16 04:04 | disposition home or self-care (01) ==
LOC: ED 23:07
DX: S30.1XXA Contusion of abdominal wall, initial encounter (principal); V00.891A Fall from other pedestrian conveyance, initial encounter; Y93.89 Activity, other specified; Y92.520 Airport as the place of occurrence of the external cause; Z79.01 Long term (current) use of anticoagulants
CPT/HCPCS: 36415; 72192; 73502; 74174; 80053; 85025; 99284; Q9967

== ENCOUNTER 2022-09-12 10:36 | Emergency (ER) | payer MEDICARE, OTHER ==
--- OUTSIDE RECORDS SUMMARY | 2022-09-12 11:10 | EXTERNAL MEDICAL SUMMARY RPT | Continuity of Care Document ---
:1935 Author Organization [facility] [address] [place] [address] Phone Care Team Providers Name Role Phone Lokibrittani Mirta Unavailable Unavailable Abrahan Hale Unavailable Unavailable Allergies and Intolerances date description facility type (no date) [facility] (unknown) Encounters No information. Functional Status No information. Immunizations No information. Medications date description facility [id number] [facility] [id number] [facility] [id number] [id number]+0000 [facility] [id number]+0000 Escitalopram Oxalate [facility] [id number]+0000 Escitalopram Oxalate [facility] [id number] [facility] [id number]+0000 [facility] Problems No information. Procedures No information. Results/Labs test date author facility value unit interpret ation Result panel 1 (unknown) (no (unknown) (unknown) (no value) (units (unk nown) date) unknown) (unknown) (no (unknown) (unknown) Assessment and (units (unknown) date) Plan: unknown) (unknown) (no (unknown) (unknown) Status: Chronic (units (unknown) date) unknown) (unknown) (no (unknown) (unknown) (no value) (units (unk nown) date) unknown) (unknown) (no (unknown) (unknown) ARTHRALGIAS (units (un known) date) unknown) (unknown) (no (unknown) (unknown) ARTHRALGIAS, (units (u nknown) date) MALAISE unknown) (unknown) (no (unknown) (unknown) [place] (units ( unknown) date) [id number] unknown) (unknown) (no (unknown) (unknown) BRADYCARDIA (units (un known) date) unknown) (unknown) (no (unknown) (unknown) Draft (units (unkno wn) date) unknown) (unknown) (no (unknown) (unknown) MALAISE (units (unkno wn) date) unknown) (unknown) (no (unknown) (unknown) Sleep Visit (units (un known) date) unknown) (unknown) (no (unknown) (unknown) [facility] ([facility] unknown) (unknown) (no (unknown) (unknown) (no value) (units (unk nown) date) unknown) (unknown) (no (unknown) (unknown) Severe JACINTO. (units (un known) date) Initially unknown) presented to [facility] in 2006 with a history of snoring, (unknown) (no (unknown) (unknown) (1) Excessive (units ( unknown) date) daytime unknown) sleepiness: (unknown) (no (unknown) (unknown) (2) Obstructive (units (unknown) date) sleep apnea of unknown) adult: (unknown) (no (unknown) (unknown) [id number] (units (unkno wn) date) unknown) (unknown) (no (unknown) (unknown) 06/29/22 (units (unkno wn) date) unknown) (unknown) (no (unknown) (unknown) 1 month for (units (un known) date) compliance check unknown) (unknown) (no (unknown) (unknown) Affect: normal (units (unknown) date) affect unknown) (unknown) (no (unknown) (unknown) Age/Sex: 87 / M (units (unknown) date) Date of Service: unknown) (unknown) (no (unknown) (unknown) Allergies (units (unkn own) date) unknown) (unknown) (no (unknown) (unknown) Appearance: (units (un known) date) grossly normal unknown) (unknown) (no (unknown) (unknown) Assessment + (units (u nknown) date) Plan unknown) (unknown) (no (unknown) (unknown) Atrial (units (unkno wn) date) fibrillation with unknown) controlled ventricular rate (unknown) (no (unknown) (unknown) Attending Dr: (units ( unknown) date) Dmitri Duenas unknown) TECHNOLOGY ANALYST (unknown) (no (unknown) (unknown) Attitude: (units (unkn own) date) cooperative unknown) (unknown) (no (unknown) (unknown) Auto CPAP set (units ( unknown) date) pressures: 8-14 unknown) CWP (unknown) (no (unknown) (unknown) Brother (units (unknown) date) Heart attack unknown) (unknown) (no (unknown) (unknown) CPAP (8-14 cwp) (units (unknown) date) unknown) (unknown) (no (unknown) (unknown) Clinical Course (units (unknown) date) unknown) (unknown) (no (unknown) (unknown) Cognition: (units (unk nown) date) normal cognition unknown) (unknown) (no (unknown) (unknown) Condition is (units (u nknown) date) Onset: Chronic unknown) and ongoing condition (unknown) (no (unknown) (unknown) Conjunctivae: (units ( unknown) date) conjunctivae unknown) normal (unknown) (no (unknown) (unknown) Const (units (unkno wn) date) unknown) (unknown) (no (unknown) (unknown) DME: (units (unkno wn) date) unknown) (unknown) (no (unknown) (unknown) : 1935 (units (unknown) date) Acct:[id number] unknown) (unknown) (no (unknown) (unknown) Dept at (units (unkno wn) date) . unknown) (unknown) (no (unknown) (unknown) Details: (units (unkno wn) date) unknown) (unknown) (no (unknown) (unknown) Device data last (units (unknown) date) 90 days: unknown) (unknown) (no (unknown) (unknown) Device setup: (units ( unknown) date) unknown) (unknown) (no (unknown) (unknown) Documented By: (units (unknown) date) Dmitri Duenas unknown) [facility] 06/29/22 1453 (unknown) (no (unknown) (unknown) Drowsy driving (units (unknown) date) handout made unknown) available. (unknown) (no (unknown) (unknown) Ears: hearing (units ( unknown) date) grossly normal unknown) bilaterally (unknown) (no (unknown) (unknown) Effort + (units (unkno wn) date) Inspection: unknown) normal respiratory effort, able to speak in complete (unknown) (no (unknown) (unknown) Exam (units (unkno wn) date) unknown) (unknown) (no (unknown) (unknown) Exam Narrative (units (unknown) date) unknown) (unknown) (no (unknown) (unknown) Exam Narrative: (units (unknown) date) unknown) (unknown) (no (unknown) (unknown) Excessive (units (unkn own) date) daytime unknown) sleepiness (unknown) (no (unknown) (unknown) Eyes (units (unkno wn) date) unknown) (unknown) (no (unknown) (unknown) Family History (units (unknown) date) (Reviewed unknown) 12/27/21 @ 09:08 by Rah Pitts MD) (unknown) (no (unknown) (unknown) Father (units (unknown) date) Heart attack unknown) (unknown) (no (unknown) (unknown) General: (units (unkno wn) date) cooperative, unknown) comfortable and no acute distress (unknown) (no (unknown) (unknown) General: patient (units (unknown) date) alert, patient unknown) awake and patient oriented x3 (unknown) (no (unknown) (unknown) HENMT (units (unkno wn) date) unknown) (unknown) (no (unknown) (unknown) HPI Sleep Follow (units (unknown) date) Up unknown) (unknown) (no (unknown) (unknown) Head: normal to (units (unknown) date) inspection unknown) (unknown) (no (unknown) (unknown) History of (units (unk nown) date) adenoidectomy unknown) (unknown) (no (unknown) (unknown) History of (units (unk nown) date) hernia surgery unknown) (unknown) (no (unknown) (unknown) 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 An NPO will be performed to (unknown) (no (unknown) (unknown) Intake (units (unkno wn) date) unknown) (unknown) (no (unknown) (unknown) Loc: SLEEP (units (unk nown) date) unknown) (unknown) (no (unknown) (unknown) Mallampati score (units (unknown) date) of IV.? 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 (units (unkno wn) date) unknown) (unknown) (no (unknown) (unknown) Obstructive (units (un known) date) sleep apnea of unknown) adult (unknown) (no (unknown) (unknown) PAP therapy. (units (u nknown) date) unknown) (unknown) (no (unknown) (unknown) PFSH (units (unkno wn) date) unknown) (unknown) (no (unknown) (unknown) Pacemaker (units (unkn own) date) unknown) (unknown) (no (unknown) (unknown) Patient (units (unkno wn) date) instructed to use unknown) scheduled naps as needed for drowsiness safety (unknown) (no (unknown) (unknown) Patient is on (units ( unknown) date) nasal CPAP at unknown) 8-14 cwp and he is using it regularly. He is (unknown) (no (unknown) (unknown) Patient reported (units (unknown) date) a history of unknown) snoring and a disturbed sleep pattern. There is (unknown) (no (unknown) (unknown) Patient reports (units (unknown) date) difficulty unknown) falling asleep is denied, difficulty staying asleep (unknown) (no (unknown) (unknown) Patient was (units (un known) date) encouraged to unknown) continue PAP therapy at 8-14 cwp. (unknown) (no (unknown) (unknown) Patient was (units (un known) date) encouraged to unknown) maintain CPAP usage at a minimum of 4 hours a night, (unknown) (no (unknown) (unknown) Patient was (units (un known) date) instructed to unknown) avoid driving or operating heavy machinery when (unknown) (no (unknown) (unknown) Patient was (units (un known) date) instructed to unknown) return sooner if any questions or concerns arise. (unknown) (no (unknown) (unknown) Patient: (units (unkno wn) date) Rah Nair unknown) MR#: [id number] (unknown) (no (unknown) (unknown) Pertinent (units (unkn own) date) Positives/Negativ unknown) es (unknown) (no (unknown) (unknown) Plan (units (unkno wn) date) unknown) (unknown) (no (unknown) (unknown) Psych (units (unkno wn) date) unknown) (unknown) (no (unknown) (unknown) Reason For Visit (units (unknown) date) unknown) (unknown) (no (unknown) (unknown) Resp (units (unkno wn) date) unknown) (unknown) (no (unknown) (unknown) Return visit in (units (unknown) date) 6 months to unknown) assess continued response to PAP therapy (unknown) (no (unknown) (unknown) Sclera: sclerae (units (unknown) date) normal unknown) (unknown) (no (unknown) (unknown) Signed By: (units (unk nown) date) unknown) (unknown) (no (unknown) (unknown) Smoking Status: (units (unknown) date) Former smoker unknown) (unknown) (no (unknown) (unknown) Snoring (units (unkno wn) date) unknown) (unknown) (no (unknown) (unknown) Social History (units (unknown) date) unknown) (unknown) (no (unknown) (unknown) Speech and (units (unk nown) date) Movement: speech unknown) and movement normal (unknown) (no (unknown) (unknown) Speech: speech (units (unknown) date) normal unknown) (unknown) (no (unknown) (unknown) Surgical History (units (unknown) date) (Reviewed unknown) 12/27/21 @ 09:08 by Rah Pitts MD) (unknown) (no (unknown) (unknown) Symptoms (units (unkno wn) date) unknown) (unknown) (no (unknown) (unknown) The patient (units (un known) date) reported symptoms unknown) of excessive daytime sleepiness as evidenced by (unknown) (no (unknown) (unknown) This note may (units ( unknown) date) have been all or unknown) partially generated using voice recognition (unknown) (no (unknown) (unknown) Tobacco + (units (unkn own) date) Substance Use unknown) (unknown) (no (unknown) (unknown) Tobacco Status (units (unknown) date) unknown) (unknown) (no (unknown) (unknown) Treatment (units (unkn own) date) Effects: Pap unknown) Treatment Response/Side Effects: adherent to current PAP (unknown) (no (unknown) (unknown) Treatment (units (unkn own) date) Response/Side unknown) Affects (unknown) (no (unknown) (unknown) Usage: 100% with (units (unknown) date) 100% greater than unknown) 4 hours. Leak 5.6 L/min. AHIflow: 5.1 (unknown) (no (unknown) (unknown) Visit Reasons: (units (unknown) date) 6m -norco/we unknown) reschld from 06/27 (unknown) (no (unknown) (unknown) Visit type (FU): (units (unknown) date) follow up of JACINTO unknown) therapy Follow up evaluation of JACINTO therapy: (unknown) (no (unknown) (unknown) alcohol intake: (units (unknown) date) current unknown) (unknown) (no (unknown) (unknown) also a history (units (unknown) date) of hypertension unknown) and ischemic heart disease with a Mallampati (unknown) (no (unknown) (unknown) amlodipine (units (unk nown) date) Adverse Reaction unknown) (Mild, Verified 12/27/21 09:16) (unknown) (no (unknown) (unknown) assess (units (unkno wn) date) effectiveness of unknown) his CPAP therapy. Patient's compliance is excellent with (unknown) (no (unknown) (unknown) but increased (units ( unknown) date) benefit from more unknown) usage was also explained. (unknown) (no (unknown) (unknown) can be seen (units (un known) date) secondary to unknown) sleep apnea, medical conditions or can be a primary (unknown) (no (unknown) (unknown) carvedilol (units (unk nown) date) Adverse Reaction unknown) (Mild, Verified 12/27/21 09:16) (unknown) (no (unknown) (unknown) consentrating/fo (units (unknown) date) cusing durng the unknown) day (unknown) (no (unknown) (unknown) contribute to (units ( unknown) date) that. He feels he unknown) is sleeping well. (unknown) (no (unknown) (unknown) cough, denies (units ( unknown) date) nocturnal unknown) palpitations, denies heart burn symptoms at night, (unknown) (no (unknown) (unknown) currently (units (unkn own) date) reporting no unknown) difficulties with the machine, mask or pressure. He (unknown) (no (unknown) (unknown) daytime (units (unkno wn) date) sleepiness and unknown) fatigue. There is also a history of atrial fibrillation, (unknown) (no (unknown) (unknown) daytime sleeping (units (unknown) date) and an elevated unknown) Jay Em Sleepiness Scale score of 15/24.? This (unknown) (no (unknown) (unknown) demonstrates a (units (unknown) date) positive clinical unknown) response, by his optimal flowAHI. He still (unknown) (no (unknown) (unknown) denied, early (units ( unknown) date) morning awakening unknown) denied, spending time in bed not sleeping a (unknown) (no (unknown) (unknown) denies night (units (u nknown) date) sweats, reports unknown) morning headache, reports nasal congestion at (unknown) (no (unknown) (unknown) drowsy. (units (unkno wn) date) unknown) (unknown) (no (unknown) (unknown) ezetimibe [From (units (unknown) date) Vytorin] Adverse unknown) Reaction (Mild, Verified 12/27/21 09:16) (unknown) (no (unknown) (unknown) for the (units (unkno wn) date) sleepiness. He unknown) reports improved daytime sleepiness, but he is still (unknown) (no (unknown) (unknown) for which he (units (u nknown) date) started CPAP. unknown) After a brief course of PAP therapy, he transitioned (unknown) (no (unknown) (unknown) gasping (units (unkno wn) date) (denied), epworth unknown) sleep scale score (14/24), bruxism (denied), sleep (unknown) (no (unknown) (unknown) have occurred. (units (unknown) date) If there are any unknown) questions, please contact the Medical Records (unknown) (no (unknown) (unknown) he was again (units (un known) date) symptomatic, unknown) repeated his sleep study, and was found to have severe (unknown) (no (unknown) (unknown) household (units (unkn own) date) members: spouse unknown) (unknown) (no (unknown) (unknown) hypertension, (units ( unknown) date) hyperlipidemia, unknown) and ischemic heart disease, as well as a (unknown) (no (unknown) (unknown) little, normal (units (unknown) date) bedtime (2100), unknown) normal wake time (0700), sleep schedule, daytime (unknown) (no (unknown) (unknown) marital status: (units (unknown) date) unknown) (unknown) (no (unknown) (unknown) may occur. (units (unk nown) date) Occasional unknown) wrong-word or 'sound-alike' substitutions may have (unknown) (no (unknown) (unknown) napping again (units ( unknown) date) discussed. unknown) Drowsiness risks and symptoms reviewed. (unknown) (no (unknown) (unknown) napping daily (units ( unknown) date) with an Jay Em unknown) Sleepiness Scale score of 14/24. The timing of (unknown) (no (unknown) (unknown) nebivolol (units (unkn own) date) Adverse Reaction unknown) (Mild, Verified 12/27/21 09:16) (unknown) (no (unknown) (unknown) night, reports (units (unknown) date) dry mouth, denies unknown) sore throat in the morning, denies nocturnal (unknown) (no (unknown) (unknown) obstructive (units (un known) date) sleep apnea.?For unknown) this he has been on nasal CPAP at 8-12 cwp. He now (unknown) (no (unknown) (unknown) occurred due to (units (unknown) date) the inherent unknown) limitations of voice recognition software. Please (unknown) (no (unknown) (unknown) on PAP well, (units (u nknown) date) sleep quality unknown) okay and daytime sleepiness (unknown) (no (unknown) (unknown) overnight pulse (units (unknown) date) oximetry study unknown) (unknown) (no (unknown) (unknown) pets and (units (unkno wn) date) animals: Yes unknown) (dog) (unknown) (no (unknown) (unknown) positive (units (unkno wn) date) clinical response unknown) including no snoring.?His compliance data indicates (unknown) (no (unknown) (unknown) problem. He has (units (unknown) date) had a medical unknown) evaluation and his medications are being adjusted (unknown) (no (unknown) (unknown) read the note (units ( unknown) date) carefully and unknown) recognize, using context, where these substitutions (unknown) (no (unknown) (unknown) reports daytime (units (unknown) date) sleepiness, but unknown) has multiple other medical problems which (unknown) (no (unknown) (unknown) reports morning (units (unknown) date) headaches on unknown) occasion and has had some memory issues of late. (unknown) (no (unknown) (unknown) reports nocturia, (units (unknown) date) denies pain, unknown) denies dizziness in the morning or denies trouble (unknown) (no (unknown) (unknown) score of IV. For (units (unknown) date) this a diagnostic unknown) sleep study was performed and showed severe (unknown) (no (unknown) (unknown) sentences and no (units (unknown) date) audible wheezes unknown) (unknown) (no (unknown) (unknown) simvastatin (units (un known) date) [From Vytorin] unknown) Adverse Reaction (Mild, Verified 12/27/21 09:16) (unknown) (no (unknown) (unknown) software. (units (unkn own) date) Although every unknown) effort is made to edit content, collision center manager errors (unknown) (no (unknown) (unknown) somnolence (units (unk nown) date) frequent, snoring unknown) not appreciated, apnea not witnessed, choking or (unknown) (no (unknown) (unknown) talking (denied) (units (unknown) date) and sleep walking unknown) (denied) (unknown) (no (unknown) (unknown) that his (units (unkno wn) date) pressure should unknown) be increased. The patient is willing to continue with (unknown) (no (unknown) (unknown) to oral (units (unkno wn) date) appliance because unknown) he had chronic nasal obstruction/conge stion. By 2009 (unknown) (no (unknown) (unknown) treatment stable (units (unknown) date) on treatment unknown) Result panel 2 (unknown) (no (unknown) (unknown) (no value) (units (unk nown) date) unknown) (unknown) (no (unknown) (unknown) Assessment and (units (unknown) date) Plan: unknown) (unknown) (no (unknown) (unknown) Status: Chronic (units (unknown) date) unknown) (unknown) (no (unknown) (unknown) (no value) (units (unk nown) date) unknown) (unknown) (no (unknown) (unknown) ARTHRALGIAS (units (un known) date) unknown) (unknown) (no (unknown) (unknown) ARTHRALGIAS, (units (u nknown) date) MALAISE unknown) (unknown) (no (unknown) (unknown) [place], [place] (units ( unknown) date) [id number] unknown) (unknown) (no (unknown) (unknown) BRADYCARDIA (units (un known) date) unknown) (unknown) (no (unknown) (unknown) Draft (units (unkno wn) date) unknown) (unknown) (no (unknown) (unknown) MALAISE (units (unkno wn) date) unknown) (unknown) (no (unknown) (unknown) Sleep Visit (units (un known) date) unknown) (unknown) (no (unknown) (unknown) [facility] unknown) (unknown) (no (unknown) (unknown) (no value) (units (unk nown) date) unknown) (unknown) (no (unknown) (unknown) Severe JACINTO. (units (un known) date) Initially unknown) presented to [facility] in 2006 with a history of snoring, (unknown) (no (unknown) (unknown) (1) Obstructive (units (unknown) date) sleep apnea of unknown) adult: (unknown) (no (unknown) (unknown) (2) Excessive (units ( unknown) date) daytime unknown) sleepiness: (unknown) (no (unknown) (unknown) [id number] (units (unkno wn) date) unknown) (unknown) (no (unknown) (unknown) 06/29/22 (units (unkno wn) date) unknown) (unknown) (no (unknown) (unknown) .? This can (units (unknown) date) be seen secondary unknown) to sleep apnea, medical conditions or can be (unknown) (no (unknown) (unknown) Affect: normal (units (unknown) date) affect unknown) (unknown) (no (unknown) (unknown) Age/Sex: 87 / M (units (unknown) date) Date of Service: unknown) (unknown) (no (unknown) (unknown) Allergies (units (unkn own) date) unknown) (unknown) (no (unknown) (unknown) Appearance: (units (un known) date) grossly normal unknown) (unknown) (no (unknown) (unknown) Assessment + (units (u nknown) date) Plan unknown) (unknown) (no (unknown) (unknown) Atrial (units (unkno wn) date) fibrillation with unknown) controlled ventricular rate (unknown) (no (unknown) (unknown) Attending Dr: (units ( unknown) date) Dmitri Duenas unknown) TECHNOLOGY ANALYST (unknown) (no (unknown) (unknown) Attitude: (units (unkn own) date) cooperative unknown) (unknown) (no (unknown) (unknown) Auto CPAP set (units ( unknown) date) pressures: 8-14 unknown) CWP (unknown) (no (unknown) (unknown) Brother (units (unknown) date) Heart attack unknown) (unknown) (no (unknown) (unknown) CPAP (8-14 cwp) (units (unknown) date) unknown) (unknown) (no (unknown) (unknown) Chief Complaint: (units (unknown) date) Follow up CPAP unknown) therapy for JACINTO (unknown) (no (unknown) (unknown) Clinical Course (units (unknown) date) unknown) (unknown) (no (unknown) (unknown) Cognition: (units (unk nown) date) normal cognition unknown) (unknown) (no (unknown) (unknown) Compliance (units (unk nown) date) review in one unknown) month (unknown) (no (unknown) (unknown) Condition is (units (u nknown) date) Onset: Chronic unknown) and ongoing condition (unknown) (no (unknown) (unknown) Conjunctivae: (units ( unknown) date) conjunctivae unknown) normal (unknown) (no (unknown) (unknown) Const (units (unkno wn) date) unknown) (unknown) (no (unknown) (unknown) Currently using (units (unknown) date) CPAP 8-14 cwp. unknown) Compliance data was reviewed and implications of (unknown) (no (unknown) (unknown) DME: [place] (units (unk nown) date) unknown) (unknown) (no (unknown) (unknown) : 1935 (units (unknown) date) Acct:[id number] unknown) (unknown) (no (unknown) (unknown) Dept at (units (unkno wn) date) . unknown) (unknown) (no (unknown) (unknown) Details: (units (unkno wn) date) unknown) (unknown) (no (unknown) (unknown) Device data last (units (unknown) date) 90 days: unknown) (unknown) (no (unknown) (unknown) Device setup: (units ( unknown) date) 07/25/2021 unknown) (unknown) (no (unknown) (unknown) Documented By: (units (unknown) date) Dmitri Duenas unknown) [facility] 06/29/22 1453 (unknown) (no (unknown) (unknown) Drowsy driving (units (unknown) date) handout made unknown) available. (unknown) (no (unknown) (unknown) Ears: hearing (units ( unknown) date) grossly normal unknown) bilaterally (unknown) (no (unknown) (unknown) Effort + (units (unkno wn) date) Inspection: unknown) normal respiratory effort, able to speak in complete (unknown) (no (unknown) (unknown) Exam (units (unkno wn) date) unknown) (unknown) (no (unknown) (unknown) Exam Narrative (units (unknown) date) unknown) (unknown) (no (unknown) (unknown) Exam Narrative: (units (unknown) date) unknown) (unknown) (no (unknown) (unknown) Excessive (units (unkn own) date) daytime unknown) sleepiness (unknown) (no (unknown) (unknown) Eyes (units (unkno wn) date) unknown) (unknown) (no (unknown) (unknown) Family History (units (unknown) date) (Reviewed unknown) 12/27/21 @ 09:08 by Rah Pitts MD) (unknown) (no (unknown) (unknown) Father (units (unknown) date) Heart attack unknown) (unknown) (no (unknown) (unknown) General: (units (unkno wn) date) cooperative, unknown) comfortable and no acute distress (unknown) (no (unknown) (unknown) General: patient (units (unknown) date) alert, patient unknown) awake and patient oriented x3 (unknown) (no (unknown) (unknown) HENMT (units (unkno wn) date) unknown) (unknown) (no (unknown) (unknown) HPI (units (unkno wn) date) unknown) (unknown) (no (unknown) (unknown) HPI Sleep Follow (units (unknown) date) Up unknown) (unknown) (no (unknown) (unknown) Head: normal to (units (unknown) date) inspection unknown) (unknown) (no (unknown) (unknown) History of (units (unk nown) date) adenoidectomy unknown) (unknown) (no (unknown) (unknown) History of (units (unk nown) date) hernia surgery unknown) (unknown) (no (unknown) (unknown) 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 For this a unknown) diagnostic sleep study was performed and (unknown) (no (unknown) (unknown) Mallampati score (units (unknown) date) of IV.? 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 (units (unkno wn) date) unknown) (unknown) (no (unknown) (unknown) Obstructive (units (un known) date) sleep apnea of unknown) adult (unknown) (no (unknown) (unknown) PFSH (units (unkno wn) date) unknown) (unknown) (no (unknown) (unknown) Pacemaker (units (unkn own) date) unknown) (unknown) (no (unknown) (unknown) Pain (units (unkno wn) date) unknown) (unknown) (no (unknown) (unknown) Pain scale (units (unk nown) date) (1-10): 8 unknown) (unknown) (no (unknown) (unknown) Patient (units (unkno wn) date) instructed to use unknown) scheduled naps as needed for drowsiness safety (unknown) (no (unknown) (unknown) Patient is on (units ( unknown) date) nasal CPAP at unknown) 8-14 cwp and he is using it regularly. He is (unknown) (no (unknown) (unknown) Patient reports (units (unknown) date) difficulty unknown) falling asleep is denied, difficulty staying asleep (unknown) (no (unknown) (unknown) Patient was (units (un known) date) encouraged to unknown) continue PAP therapy at 8-16 cwp. (unknown) (no (unknown) (unknown) Patient was (units (un known) date) encouraged to unknown) maintain CPAP usage at a minimum of 4 hours a night, (unknown) (no (unknown) (unknown) Patient was (units (un known) date) instructed to unknown) avoid driving or operating heavy machinery when (unknown) (no (unknown) (unknown) Patient was (units (un known) date) instructed to unknown) return sooner if any questions or concerns arise. (unknown) (no (unknown) (unknown) Patient: (units (unkno wn) date) Rah Nair unknown) MR#: [id number] (unknown) (no (unknown) (unknown) Pertinent (units (unkn own) date) Positives/Negativ unknown) es (unknown) (no (unknown) (unknown) Plan (units (unkno wn) date) unknown) (unknown) (no (unknown) (unknown) Psych (units (unkno wn) date) unknown) (unknown) (no (unknown) (unknown) Reaching maximum (units (unknown) date) pressure, agrees unknown) to adjusted pressure. (unknown) (no (unknown) (unknown) Reaching maximum (units (unknown) date) pressure. Agrees unknown) to try adjusted pressure. (unknown) (no (unknown) (unknown) Reason For Visit (units (unknown) date) unknown) (unknown) (no (unknown) (unknown) Resp (units (unkno wn) date) unknown) (unknown) (no (unknown) (unknown) Return visit in (units (unknown) date) 6 months to unknown) assess continued response to PAP therapy (unknown) (no (unknown) (unknown) Sclera: sclerae (units (unknown) date) normal unknown) (unknown) (no (unknown) (unknown) Severe JACINTO. (units (unk nown) date) Patient reported unknown) a history of snoring and a disturbed sleep pattern. (unknown) (no (unknown) (unknown) Signed By: (units (unk nown) date) unknown) (unknown) (no (unknown) (unknown) Smoking Status: (units (unknown) date) Former smoker unknown) (unknown) (no (unknown) (unknown) Snoring (units (unkno wn) date) unknown) (unknown) (no (unknown) (unknown) Social History (units (unknown) date) unknown) (unknown) (no (unknown) (unknown) Speech and (units (unk nown) date) Movement: speech unknown) and movement normal (unknown) (no (unknown) (unknown) Speech: speech (units (unknown) date) normal unknown) (unknown) (no (unknown) (unknown) Surgical History (units (unknown) date) (Reviewed unknown) 12/27/21 @ 09:08 by Rah Pitts MD) (unknown) (no (unknown) (unknown) Symptoms (units (unkno wn) date) unknown) (unknown) (no (unknown) (unknown) The patient (units (un known) date) reported symptoms unknown) of excessive daytime sleepiness as evidenced by (unknown) (no (unknown) (unknown) There is also a (units (unknown) date) history of unknown) hypertension and ischemic heart disease with a (unknown) (no (unknown) (unknown) This note may (units ( unknown) date) have been all or unknown) partially generated using voice recognition (unknown) (no (unknown) (unknown) Tobacco + (units (unkn own) date) Substance Use unknown) (unknown) (no (unknown) (unknown) Tobacco Status (units (unknown) date) unknown) (unknown) (no (unknown) (unknown) Treatment (units (unkn own) date) Effects: Pap unknown) Treatment Response/Side Effects: adherent to current PAP (unknown) (no (unknown) (unknown) Treatment (units (unkn own) date) Response/Side unknown) Affects (unknown) (no (unknown) (unknown) Usage: 100% with (units (unknown) date) 100% greater than unknown) 4 hours. Leak 5.6 L/min. AHIflow: 5.1 (unknown) (no (unknown) (unknown) Visit Reasons: (units (unknown) date) 6m -norco/we unknown) reschld from 06/27 (unknown) (no (unknown) (unknown) Visit type (FU): (units (unknown) date) follow up of JACINTO unknown) therapy Follow up evaluation of JACINTO therapy: (unknown) (no (unknown) (unknown) Was having (units (unkn own) date) morning headaches unknown) on occasion and memory issues. An NPO was performed (unknown) (no (unknown) (unknown) a primary (units (unkn own) date) problem. He unknown) reports improved daytime sleepiness, but he is still (unknown) (no (unknown) (unknown) alcohol intake: (units (unknown) date) current unknown) (unknown) (no (unknown) (unknown) amlodipine (units (unk nown) date) Adverse Reaction unknown) (Mild, Verified 06/29/22 15:05) (unknown) (no (unknown) (unknown) and symptoms (units (u nknown) date) reviewed. unknown) (unknown) (no (unknown) (unknown) but increased (units ( unknown) date) benefit from more unknown) usage was also explained. (unknown) (no (unknown) (unknown) carvedilol (units (unk nown) date) Adverse Reaction unknown) (Mild, Verified 06/29/22 15:05) (unknown) (no (unknown) (unknown) consentrating/fo (units (unknown) date) cusing durng the unknown) day (unknown) (no (unknown) (unknown) continue with (units ( unknown) date) PAP therapy. unknown) (unknown) (no (unknown) (unknown) contribute to (units ( unknown) date) that. He feels he unknown) is sleeping well. (unknown) (no (unknown) (unknown) cough, denies (units ( unknown) date) nocturnal unknown) palpitations, denies heart burn symptoms at night, (unknown) (no (unknown) (unknown) currently (units (unkn own) date) reporting no unknown) difficulties with the machine, mask or pressure. He (unknown) (no (unknown) (unknown) daytime (units (unkno wn) date) sleepiness and unknown) fatigue. There is also a history of atrial fibrillation, (unknown) (no (unknown) (unknown) daytime sleeping (units (unknown) date) and an originally unknown) elevated Jay Em Sleepiness Scale score of (unknown) (no (unknown) (unknown) demonstrates a (units (unknown) date) positive clinical unknown) response, by his optimal flowAHI. He still (unknown) (no (unknown) (unknown) denied, early (units ( unknown) date) morning awakening unknown) denied, spending time in bed not sleeping a (unknown) (no (unknown) (unknown) denies night (units (u nknown) date) sweats, reports unknown) morning headache, reports nasal congestion at (unknown) (no (unknown) (unknown) drowsy. (units (unkno wn) date) unknown) (unknown) (no (unknown) (unknown) events below (units (u nknown) date) 90%. unknown) (unknown) (no (unknown) (unknown) ezetimibe [From (units (unknown) date) Vytorin] Adverse unknown) Reaction (Mild, Verified 06/29/22 15:05) (unknown) (no (unknown) (unknown) findings (units (unkno wn) date) discussed. unknown) Patient's compliance is excellent with positive clinical (unknown) (no (unknown) (unknown) for which he (units (u nknown) date) started CPAP. unknown) After a brief course of PAP therapy, he transitioned (unknown) (no (unknown) (unknown) gasping (units (unkno wn) date) (denied), epworth unknown) sleep scale score (11/11), bruxism (denied), sleep (unknown) (no (unknown) (unknown) have occurred. (units (unknown) date) If there are any unknown) questions, please contact the Medical Records (unknown) (no (unknown) (unknown) he was again (units (un known) date) symptomatic, unknown) repeated his sleep study, and was found to have severe (unknown) (no (unknown) (unknown) household (units (unkn own) date) members: spouse unknown) (unknown) (no (unknown) (unknown) hypertension, (units ( unknown) date) hyperlipidemia, unknown) and ischemic heart disease, as well as a (unknown) (no (unknown) (unknown) little, normal (units (unknown) date) bedtime (2100), unknown) normal wake time (0700), sleep schedule, daytime (unknown) (no (unknown) (unknown) marital status: (units (unknown) date) unknown) (unknown) (no (unknown) (unknown) may occur. (units (unk nown) date) Occasional unknown) wrong-word or 'sound-alike' substitutions may have (unknown) (no (unknown) (unknown) napping daily (units ( unknown) date) with an Jay Em unknown) Sleepiness Scale score of 12/24. Drowsiness risks (unknown) (no (unknown) (unknown) nebivolol (units (unkn own) date) Adverse Reaction unknown) (Mild, Verified 06/29/22 15:05) (unknown) (no (unknown) (unknown) night, reports (units (unknown) date) dry mouth, denies unknown) sore throat in the morning, denies nocturnal (unknown) (no (unknown) (unknown) occurred due to (units (unknown) date) the inherent unknown) limitations of voice recognition software. Please (unknown) (no (unknown) (unknown) on PAP well, (units (u nknown) date) sleep quality unknown) okay and daytime sleepiness (unknown) (no (unknown) (unknown) pets and (units (unkno wn) date) animals: Yes unknown) (dog) (unknown) (no (unknown) (unknown) read the note (units ( unknown) date) carefully and unknown) recognize, using context, where these substitutions (unknown) (no (unknown) (unknown) reports daytime (units (unknown) date) sleepiness, but unknown) has multiple other medical problems which (unknown) (no (unknown) (unknown) reports nocturia, (units (unknown) date) denies pain, unknown) denies dizziness in the morning or denies trouble (unknown) (no (unknown) (unknown) response (units (unkno wn) date) including no unknown) snoring and good AHIflow.?The patient is willing to (unknown) (no (unknown) (unknown) sentences and no (units (unknown) date) audible wheezes unknown) (unknown) (no (unknown) (unknown) showed severe (units ( unknown) date) obstructive sleep unknown) apnea.?For this he has been on nasal CPAP. (unknown) (no (unknown) (unknown) simvastatin (units (un known) date) [From Vytorin] unknown) Adverse Reaction (Mild, Verified 06/29/22 15:05) (unknown) (no (unknown) (unknown) software. (units (unkn own) date) Although every unknown) effort is made to edit content, collision center manager errors (unknown) (no (unknown) (unknown) somnolence (units (unk nown) date) frequent, snoring unknown) not appreciated, apnea not witnessed, choking or (unknown) (no (unknown) (unknown) talking (denied) (units (unknown) date) and sleep walking unknown) (denied) (unknown) (no (unknown) (unknown) to assess (units (unkn own) date) effectiveness of unknown) his CPAP therapy and he was not having desaturation (unknown) (no (unknown) (unknown) to oral (units (unkno wn) date) appliance because unknown) he had chronic nasal obstruction/conge stion. By 2009 (unknown) (no (unknown) (unknown) treatment stable (units (unknown) date) on treatment unknown) Result panel 3 (unknown) (no (unknown) (unknown) (no value) (units (unk nown) date) unknown) (unknown) (no (unknown) (unknown) Assessment and (units (unknown) date) Plan: unknown) (unknown) (no (unknown) (unknown) Status: Chronic (units (unknown) date) unknown) (unknown) (no (unknown) (unknown) (no value) (units (unk nown) date) unknown) (unknown) (no (unknown) (unknown) 06/29/22 (units (unkno wn) date) unknown) (unknown) (no (unknown) (unknown) 15:09 (units (unkno wn) date) unknown) (unknown) (no (unknown) (unknown) ARTHRALGIAS (units (un known) date) unknown) (unknown) (no (unknown) (unknown) ARTHRALGIAS, (units (u nknown) date) MALAISE unknown) (unknown) (no (unknown) (unknown) [place], [place] (units ( unknown) date) [id number] unknown) (unknown) (no (unknown) (unknown) BRADYCARDIA (units (un known) date) unknown) (unknown) (no (unknown) (unknown) Draft (units (unkno wn) date) unknown) (unknown) (no (unknown) (unknown) MALAISE (units (unkno wn) date) unknown) (unknown) (no (unknown) (unknown) Sleep Visit (units (un known) date) unknown) (unknown) (no (unknown) (unknown) [facility] unknown) (unknown) (no (unknown) (unknown) (no value) (units (unk nown) date) unknown) (unknown) (no (unknown) (unknown) Severe JACITNO. (units (un known) date) Initially unknown) presented to [facility] [place] in 2006 with a history of snoring, (unknown) (no (unknown) (unknown) (1) Obstructive (units (unknown) date) sleep apnea of unknown) adult: (unknown) (no (unknown) (unknown) (2) Excessive (units ( unknown) date) daytime unknown) sleepiness: (unknown) (no (unknown) (unknown) 0 = Would never (units (unknown) date) doze or sleep, 1 unknown) = Slight chance of dozing or sleeping, 2 = (unknown) (no (unknown) (unknown) [id number] (units (unkno wn) date) unknown) (unknown) (no (unknown) (unknown) 01/25/21 (units (unkno wn) date) [History unknown) Confirmed 06/29/22] (unknown) (no (unknown) (unknown) 06/29/22 (units (unkno wn) date) unknown) (unknown) (no (unknown) (unknown) 06/29/22] (units (unkn own) date) unknown) (unknown) (no (unknown) (unknown) 04/11.? This can (units (unknown) date) be seen secondary unknown) to sleep apnea, medical conditions or can be a (unknown) (no (unknown) (unknown) Affect: normal (units (unknown) date) affect unknown) (unknown) (no (unknown) (unknown) Age/Sex: 87 / M (units (unknown) date) Date of Service: unknown) (unknown) (no (unknown) (unknown) Allergies (units (unkn own) date) unknown) (unknown) (no (unknown) (unknown) Appearance: (units (un known) date) grossly normal unknown) (unknown) (no (unknown) (unknown) Assessment + (units (u nknown) date) Plan unknown) (unknown) (no (unknown) (unknown) Atrial (units (unkno wn) date) fibrillation with unknown) controlled ventricular rate (unknown) (no (unknown) (unknown) Attending Dr: (units ( unknown) date) Dmitri Duenas unknown) TECHNOLOGY ANALYST (unknown) (no (unknown) (unknown) Attitude: (units (unkn own) date) cooperative unknown) (unknown) (no (unknown) (unknown) Auto CPAP set (units ( unknown) date) pressures: 8-14 unknown) CWP (unknown) (no (unknown) (unknown) BMI 26.4 (units (unkno wn) date) unknown) (unknown) (no (unknown) (unknown) BP 158/91 H (units (un known) date) unknown) (unknown) (no (unknown) (unknown) Being a (units (unkno wn) date) passenger in a unknown) motor vehicle for an hour or so: 0 = Never (None) (unknown) (no (unknown) (unknown) Blood Pressure (units (unknown) date) Location Lt unknown) brachial (unknown) (no (unknown) (unknown) Brother (units (unknown) date) Heart attack unknown) (unknown) (no (unknown) (unknown) CPAP (8-14 cwp) (units (unknown) date) unknown) (unknown) (no (unknown) (unknown) Chief Complaint: (units (unknown) date) Follow up CPAP unknown) therapy for JACINTO (unknown) (no (unknown) (unknown) Clinical Course (units (unknown) date) unknown) (unknown) (no (unknown) (unknown) Cognition: (units (unk nown) date) normal cognition unknown) (unknown) (no (unknown) (unknown) Compliance (units (unk nown) date) review in one unknown) month (unknown) (no (unknown) (unknown) Condition is (units (u nknown) date) Onset: Chronic unknown) and ongoing condition (unknown) (no (unknown) (unknown) Confirmed (units (unkn own) date) 06/29/22] unknown) (unknown) (no (unknown) (unknown) Conjunctivae: (units ( unknown) date) conjunctivae unknown) normal (unknown) (no (unknown) (unknown) Const (units (unkno wn) date) unknown) (unknown) (no (unknown) (unknown) Currently using (units (unknown) date) CPAP 8-14 cwp. unknown) Compliance data was reviewed and implications of (unknown) (no (unknown) (unknown) DME: [place] (units (unk nown) date) unknown) (unknown) (no (unknown) (unknown) : 1935 (units (unknown) date) Acct:[id number] unknown) (unknown) (no (unknown) (unknown) Dept at (units (unkno wn) date) . unknown) (unknown) (no (unknown) (unknown) Details: (units (unkno wn) date) unknown) (unknown) (no (unknown) (unknown) Device data last (units (unknown) date) 90 days: unknown) (unknown) (no (unknown) (unknown) Device setup: (units ( unknown) date) 07/25/2021 unknown) (unknown) (no (unknown) (unknown) Documented By: (units (unknown) date) Dmitri Duenas unknown) TECHNOLOGY ANALYST 06/29/22 1453 (unknown) (no (unknown) (unknown) Drowsy driving (units (unknown) date) handout made unknown) available. (unknown) (no (unknown) (unknown) Ears: hearing (units ( unknown) date) grossly normal unknown) bilaterally (unknown) (no (unknown) (unknown) Effort + (units (unkno wn) date) Inspection: unknown) normal respiratory effort, able to speak in complete (unknown) (no (unknown) (unknown) Jay Em Score: (units (unknown) date) 12 unknown) (unknown) (no (unknown) (unknown) Jay Em (units (unkno wn) date) Sleepiness Scale unknown) (unknown) (no (unknown) (unknown) Exam (units (unkno wn) date) unknown) (unknown) (no (unknown) (unknown) Exam Narrative (units (unknown) date) unknown) (unknown) (no (unknown) (unknown) Exam Narrative: (units (unknown) date) unknown) (unknown) (no (unknown) (unknown) Excessive (units (unkn own) date) daytime unknown) sleepiness (unknown) (no (unknown) (unknown) Eyes (units (unkno wn) date) unknown) (unknown) (no (unknown) (unknown) Family History (units (unknown) date) (Reviewed unknown) 12/27/21 @ 09:08 by Rah Pitts MD) (unknown) (no (unknown) (unknown) Father (units (unknown) date) Heart attack unknown) (unknown) (no (unknown) (unknown) General: (units (unkno wn) date) cooperative, unknown) comfortable and no acute distress (unknown) (no (unknown) (unknown) General: patient (units (unknown) date) alert, patient unknown) awake and patient oriented x3 (unknown) (no (unknown) (unknown) HENMT (units (unkno wn) date) unknown) (unknown) (no (unknown) (unknown) HPI (units (unkno wn) date) unknown) (unknown) (no (unknown) (unknown) HPI Sleep Follow (units (unknown) date) Up unknown) (unknown) (no (unknown) (unknown) Head: normal to (units (unknown) date) inspection unknown) (unknown) (no (unknown) (unknown) Height 6 ft 1.5 (units (unknown) date) in unknown) (unknown) (no (unknown) (unknown) History of (units (unk nown) date) adenoidectomy unknown) (unknown) (no (unknown) (unknown) History of (units (unk nown) date) hernia surgery unknown) (unknown) (no (unknown) (unknown) 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 For this a unknown) diagnostic sleep study was performed and (unknown) (no (unknown) (unknown) Mallampati score (units (unknown) date) of IV.? 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) associated with unknown) adverse incidents (unknown) (no (unknown) (unknown) Medications (units (un known) date) unknown) (unknown) (no (unknown) (unknown) Moderate chance (units (unknown) date) of dozing or unknown) sleeping, 3 = High chance of dozing or sleeping (unknown) (no (unknown) (unknown) Mood: congruent (units (unknown) date) mood unknown) (unknown) (no (unknown) (unknown) Neck (units (unkno wn) date) unknown) (unknown) (no (unknown) (unknown) Neck: normal (units (u nknown) date) visual inspection unknown) (unknown) (no (unknown) (unknown) Neuro (units (unkno wn) date) unknown) (unknown) (no (unknown) (unknown) JACINTO. (units (unkno wn) date) unknown) (unknown) (no (unknown) (unknown) Obstructive (units (un known) date) sleep apnea of unknown) adult (unknown) (no (unknown) (unknown) PFSH (units (unkno wn) date) unknown) (unknown) (no (unknown) (unknown) Pacemaker (units (unkn own) date) unknown) (unknown) (no (unknown) (unknown) Pain (units (unkno wn) date) unknown) (unknown) (no (unknown) (unknown) Pain scale (units (unk nown) date) (1-10): 8 unknown) (unknown) (no (unknown) (unknown) Patient (units (unkno wn) date) instructed to use unknown) scheduled naps as needed for drowsiness safety (unknown) (no (unknown) (unknown) Patient is on (units ( unknown) date) nasal CPAP at unknown) 8-14 cwp and he is using it regularly. He is (unknown) (no (unknown) (unknown) Patient reports (units (unknown) date) difficulty unknown) falling asleep is denied, difficulty staying asleep (unknown) (no (unknown) (unknown) Patient was (units (un known) date) encouraged to unknown) continue PAP therapy at 8-16 cwp. (unknown) (no (unknown) (unknown) Patient was (units (un known) date) encouraged to unknown) maintain CPAP usage at a minimum of 4 hours a night, (unknown) (no (unknown) (unknown) Patient was (units (un known) date) instructed to unknown) avoid driving or operating heavy machinery when (unknown) (no (unknown) (unknown) Patient was (units (un known) date) instructed to unknown) return sooner if any questions or concerns arise. (unknown) (no (unknown) (unknown) Patient: (units (unkno wn) date) Rah Nair unknown) MR#: [id number] (unknown) (no (unknown) (unknown) Pertinent (units (unkn own) date) Positives/Negativ unknown) es (unknown) (no (unknown) (unknown) Plan (units (unkno wn) date) unknown) (unknown) (no (unknown) (unknown) Position Sitting (units (unknown) date) unknown) (unknown) (no (unknown) (unknown) Psych (units (unkno wn) date) unknown) (unknown) (no (unknown) (unknown) Pulse 63 (units (unkno wn) date) unknown) (unknown) (no (unknown) (unknown) Pulse Source (units (u nknown) date) Monitor unknown) (unknown) (no (unknown) (unknown) Questionnaires (units (unknown) date) unknown) (unknown) (no (unknown) (unknown) Reaching maximum (units (unknown) date) pressure, agrees unknown) to adjusted pressure. (unknown) (no (unknown) (unknown) Reaching maximum (units (unknown) date) pressure. Agrees unknown) to try adjusted pressure. (unknown) (no (unknown) (unknown) Reason For Visit (units (unknown) date) unknown) (unknown) (no (unknown) (unknown) ResMed AirSense (units (unknown) date) 10 12/27/21 unknown) [History Confirmed 06/29/22] (unknown) (no (unknown) (unknown) Resp (units (unkno wn) date) unknown) (unknown) (no (unknown) (unknown) Respiration 14 (units (unknown) date) unknown) (unknown) (no (unknown) (unknown) Return visit in (units (unknown) date) 6 months to unknown) assess continued response to PAP therapy (unknown) (no (unknown) (unknown) Sclera: sclerae (units (unknown) date) normal unknown) (unknown) (no (unknown) (unknown) Severe JACINTO. (units (unk nown) date) Patient reported unknown) a history of snoring and a disturbed sleep pattern. (unknown) (no (unknown) (unknown) Signed By: (units (unk nown) date) unknown) (unknown) (no (unknown) (unknown) Sitting and (units (un known) date) Readin = High unknown) (unknown) (no (unknown) (unknown) Sitting and (units (un known) date) talking to unknown) someone: 0 = Never (None) (unknown) (no (unknown) (unknown) Sitting inactive (units (unknown) date) in a public unknown) place: 0 = Never (None) (unknown) (no (unknown) (unknown) Sitting quietly (units (unknown) date) after lunch (no unknown) alcohol): 3 = High (unknown) (no (unknown) (unknown) Smoking Status: (units (unknown) date) Former smoker unknown) (unknown) (no (unknown) (unknown) Snoring (units (unkno wn) date) unknown) (unknown) (no (unknown) (unknown) Social History (units (unknown) date) unknown) (unknown) (no (unknown) (unknown) Speech and (units (unk nown) date) Movement: speech unknown) and movement normal (unknown) (no (unknown) (unknown) Speech: speech (units (unknown) date) normal unknown) (unknown) (no (unknown) (unknown) Stopped for a (units ( unknown) date) few minutes in unknown) traffic: 0 = Never (None) (unknown) (no (unknown) (unknown) Surgical History (units (unknown) date) (Reviewed unknown) 12/27/21 @ 09:08 by Rah Pitts MD) (unknown) (no (unknown) (unknown) Symptoms (units (unkno wn) date) unknown) (unknown) (no (unknown) (unknown) Temp 97.6 F (units (un known) date) unknown) (unknown) (no (unknown) (unknown) Temp Source (units (un known) date) Temporal Artery unknown) Scan (unknown) (no (unknown) (unknown) The patient (units (un known) date) reported symptoms unknown) of excessive daytime sleepiness as evidenced by (unknown) (no (unknown) (unknown) There is also a (units (unknown) date) history of unknown) hypertension and ischemic heart disease with a (unknown) (no (unknown) (unknown) This note may (units ( unknown) date) have been all or unknown) partially generated using voice recognition (unknown) (no (unknown) (unknown) Tobacco + (units (unkn own) date) Substance Use unknown) (unknown) (no (unknown) (unknown) Tobacco Status (units (unknown) date) unknown) (unknown) (no (unknown) (unknown) Treatment (units (unkn own) date) Effects: Pap unknown) Treatment Response/Side Effects: adherent to current PAP (unknown) (no (unknown) (unknown) Treatment (units (unkn own) date) Response/Side unknown) Affects (unknown) (no (unknown) (unknown) Usage: 100% with (units (unknown) date) 100% greater than unknown) 4 hours. Leak 5.6 L/min. AHIflow: 5.1 (unknown) (no (unknown) (unknown) Visit Reasons: (units (unknown) date) 6m -norco/we unknown) reschld from 06/27 (unknown) (no (unknown) (unknown) Visit type (FU): (units (unknown) date) follow up of JACINTO unknown) therapy Follow up evaluation of JACINTO therapy: (unknown) (no (unknown) (unknown) Vitals (units (unkno wn) date) unknown) (unknown) (no (unknown) (unknown) Was having (units (unkn own) date) morning headaches unknown) on occasion and memory issues. An NPO was performed (unknown) (no (unknown) (unknown) Watching TV: 3 = (units (unknown) date) High unknown) (unknown) (no (unknown) (unknown) Weight 203 lb (units ( unknown) date) unknown) (unknown) (no (unknown) (unknown) alcohol intake: (units (unknown) date) current unknown) (unknown) (no (unknown) (unknown) amlodipine (units (unk nown) date) Adverse Reaction unknown) (Mild, Verified 06/29/22 15:05) (unknown) (no (unknown) (unknown) apixaban 5 mg (units (u nknown) date) tablet (Eliquis) unknown) 5 mg PO BID 06/08/21 [History Confirmed 06/29/22] (unknown) (no (unknown) (unknown) benazepril 20 mg (units (unknown) date) tablet 40 mg PO unknown) BID 06/29/22 [History Confirmed 06/29/22] (unknown) (no (unknown) (unknown) but increased (units ( unknown) date) benefit from more unknown) usage was also explained. (unknown) (no (unknown) (unknown) carvedilol 25 mg (units (unknown) date) tablet 25 mg PO unknown) BID 06/29/22 [History Confirmed 06/29/22] (unknown) (no (unknown) (unknown) carvedilol (units (unk nown) date) Adverse Reaction unknown) (Mild, Verified 06/29/22 15:05) (unknown) (no (unknown) (unknown) coenzyme Q10 100 (units (unknown) date) mg tablet 100 mg unknown) PO DAILY 01/25/21 [History Confirmed 06/29/22] (unknown) (no (unknown) (unknown) consentrating/fo (units (unknown) date) cusing durng the unknown) day (unknown) (no (unknown) (unknown) continue with (units ( unknown) date) PAP therapy. unknown) (unknown) (no (unknown) (unknown) contribute to (units ( unknown) date) that. He feels he unknown) is sleeping well. (unknown) (no (unknown) (unknown) cough, denies (units ( unknown) date) nocturnal unknown) palpitations, denies heart burn symptoms at night, (unknown) (no (unknown) (unknown) currently (units (unkn own) date) reporting no unknown) difficulties with the machine, mask or pressure. He (unknown) (no (unknown) (unknown) cyanocobalamin (units (unknown) date) (vitamin B-12) unknown) 500 mcg tablet (Vitamin B-12) 500 mcg PO DAILY (unknown) (no (unknown) (unknown) daily with an (units ( unknown) date) Jay Em unknown) Sleepiness Scale score of 12/24. Drowsiness risks and (unknown) (no (unknown) (unknown) daytime (units (unkno wn) date) sleepiness and unknown) fatigue. There is also a history of atrial fibrillation, (unknown) (no (unknown) (unknown) daytime sleeping (units (unknown) date) and an originally unknown) elevated Jay Em Sleepiness Scale score of 1 (unknown) (no (unknown) (unknown) demonstrates a (units (unknown) date) positive clinical unknown) response, by his optimal flowAHI. He still (unknown) (no (unknown) (unknown) denied, early (units ( unknown) date) morning awakening unknown) denied, spending time in bed not sleeping a (unknown) (no (unknown) (unknown) denies night (units (u nknown) date) sweats, reports unknown) morning headache, reports nasal congestion at (unknown) (no (unknown) (unknown) drowsy. (units (unkno wn) date) unknown) (unknown) (no (unknown) (unknown) escitalopram (units (u nknown) date) oxalate 5 mg unknown) tablet (Lexapro) 5 mg PO DAILY 06/29/22 [History (unknown) (no (unknown) (unknown) events below (units (u nknown) date) 90%. unknown) (unknown) (no (unknown) (unknown) ezetimibe [From (units (unknown) date) Vytorin] Adverse unknown) Reaction (Mild, Verified 06/29/22 15:05) (unknown) (no (unknown) (unknown) findings (units (unkno wn) date) discussed. unknown) Patient's compliance is excellent with positive clinical (unknown) (no (unknown) (unknown) for which he (units (u nknown) date) started CPAP. unknown) After a brief course of PAP therapy, he transitioned (unknown) (no (unknown) (unknown) gasping (units (unkno wn) date) (denied), epworth unknown) sleep scale score (11/11), bruxism (denied), sleep (unknown) (no (unknown) (unknown) glucosamine HCl (units (unknown) date) 500 mg tablet 500 unknown) mg PO DAILY 07/07/21 [History Confirmed (unknown) (no (unknown) (unknown) have occurred. (units (unknown) date) If there are any unknown) questions, please contact the Medical Records (unknown) (no (unknown) (unknown) he was again (units (un known) date) symptomatic, unknown) repeated his sleep study, and was found to have severe (unknown) (no (unknown) (unknown) household (units (unkn own) date) members: spouse unknown) (unknown) (no (unknown) (unknown) hypertension, (units ( unknown) date) hyperlipidemia, unknown) and ischemic heart disease, as well as a (unknown) (no (unknown) (unknown) little, normal (units (unknown) date) bedtime (2100), unknown) normal wake time (0700), sleep schedule, daytime (unknown) (no (unknown) (unknown) marital status: (units (unknown) date) unknown) (unknown) (no (unknown) (unknown) may occur. (units (unk nown) date) Occasional unknown) wrong-word or 'sound-alike' substitutions may have (unknown) (no (unknown) (unknown) nebivolol (units (unkn own) date) Adverse Reaction unknown) (Mild, Verified 06/29/22 15:05) (unknown) (no (unknown) (unknown) night, reports (units (unknown) date) dry mouth, denies unknown) sore throat in the morning, denies nocturnal (unknown) (no (unknown) (unknown) occurred due to (units (unknown) date) the inherent unknown) limitations of voice recognition software. Please (unknown) (no (unknown) (unknown) on PAP well, (units (u nknown) date) sleep quality unknown) okay and daytime sleepiness (unknown) (no (unknown) (unknown) oxybutynin (units (unk nown) date) chloride 5 mg unknown) tablet 5 mg PO BEDTIME 12/27/21 [History Confirmed (unknown) (no (unknown) (unknown) pets and (units (unkno wn) date) animals: Yes unknown) (dog) (unknown) (no (unknown) (unknown) primary problem. (units (unknown) date) He reports unknown) improved daytime sleepiness, but he is still napping (unknown) (no (unknown) (unknown) read the note (units ( unknown) date) carefully and unknown) recognize, using context, where these substitutions (unknown) (no (unknown) (unknown) reports daytime (units (unknown) date) sleepiness, but unknown) has multiple other medical problems which (unknown) (no (unknown) (unknown) reports nocturia, (units (unknown) date) denies pain, unknown) denies dizziness in the morning or denies trouble (unknown) (no (unknown) (unknown) response (units (unkno wn) date) including no unknown) snoring and good AHIflow.?The patient is willing to (unknown) (no (unknown) (unknown) rosuvastatin 20 (units (unknown) date) mg tablet 10 mg unknown) PO DAILY 08/13/19 [History Confirmed 06/29/22] (unknown) (no (unknown) (unknown) sentences and no (units (unknown) date) audible wheezes unknown) (unknown) (no (unknown) (unknown) showed severe (units ( unknown) date) obstructive sleep unknown) apnea.?For this he has been on nasal CPAP. (unknown) (no (unknown) (unknown) simvastatin (units (un known) date) [From Vytorin] unknown) Adverse Reaction (Mild, Verified 06/29/22 15:05) (unknown) (no (unknown) (unknown) software. (units (unkn own) date) Although every unknown) effort is made to edit content, collision center manager errors (unknown) (no (unknown) (unknown) somnolence (units (unk nown) date) frequent, snoring unknown) not appreciated, apnea not witnessed, choking or (unknown) (no (unknown) (unknown) spironolactone 25 (units (unknown) date) mg tablet 25 mg unknown) PO DAILY 06/29/22 [History Confirmed 06/29/22] (unknown) (no (unknown) (unknown) symptoms (units (unkno wn) date) reviewed. unknown) (unknown) (no (unknown) (unknown) talking (denied) (units (unknown) date) and sleep walking unknown) (denied) (unknown) (no (unknown) (unknown) to assess (units (unkn own) date) effectiveness of unknown) his CPAP therapy and he was not having desaturation (unknown) (no (unknown) (unknown) to oral (units (unkno wn) date) appliance because unknown) he had chronic nasal obstruction/conge stion. By 2009 (unknown) (no (unknown) (unknown) treatment stable (units (unknown) date) on treatment unknown) Result panel 4 (unknown) (no (unknown) (unknown) (no value) (units (unk nown) date) unknown) (unknown) (no (unknown) (unknown) Assessment and (units (unknown) date) Plan: unknown) (unknown) (no (unknown) (unknown) Status: Chronic (units (unknown) date) unknown) (unknown) (no (unknown) (unknown) (no value) (units (unk nown) date) unknown) (unknown) (no (unknown) (unknown) ARTHRALGIAS (units (un known) date) unknown) (unknown) (no (unknown) (unknown) ARTHRALGIAS, (units (u nknown) date) MALAISE unknown) (unknown) (no (unknown) (unknown) [place], [place] (units ( unknown) date) [id number] unknown) (unknown) (no (unknown) (unknown) BRADYCARDIA (units (un known) date) unknown) (unknown) (no (unknown) (unknown) Draft (units (unkno wn) date) unknown) (unknown) (no (unknown) (unknown) MALAISE (units (unkno wn) date) unknown) (unknown) (no (unknown) (unknown) Sleep Visit (units (un known) date) unknown) (unknown) (no (unknown) (unknown) [facility] unknown) (unknown) (no (unknown) (unknown) (no value) (units (unk nown) date) unknown) (unknown) (no (unknown) (unknown) Severe JACINTO. (units (un known) date) Initially unknown) presented to [facility] [place] in 2006 with a history of snoring, (unknown) (no (unknown) (unknown) (1) Obstructive (units (unknown) date) sleep apnea of unknown) adult: (unknown) (no (unknown) (unknown) (2) Excessive (units ( unknown) date) daytime unknown) sleepiness: (unknown) (no (unknown) (unknown) 0 = Would never (units (unknown) date) doze or sleep, 1 unknown) = Slight chance of dozing or sleeping, 2 = (unknown) (no (unknown) (unknown) [id number] (units (unkno wn) date) unknown) (unknown) (no (unknown) (unknown) 01/25/21 (units (unkno wn) date) [History unknown) Confirmed 06/29/22] (unknown) (no (unknown) (unknown) 06/29/22 (units (unkno wn) date) unknown) (unknown) (no (unknown) (unknown) 06/29/22] (units (unkn own) date) unknown) (unknown) (no (unknown) (unknown) .? This can (units (unknown) date) be seen secondary unknown) to sleep apnea, medical conditions or can be (unknown) (no (unknown) (unknown) 2: better (units (unkn own) date) unknown) (unknown) (no (unknown) (unknown) Affect: normal (units (unknown) date) affect unknown) (unknown) (no (unknown) (unknown) Age/Sex: 87 / M (units (unknown) date) Date of Service: unknown) (unknown) (no (unknown) (unknown) Allergies (units (unkn own) date) unknown) (unknown) (no (unknown) (unknown) Appearance: (units (un known) date) grossly normal unknown) (unknown) (no (unknown) (unknown) Assessment + (units (u nknown) date) Plan unknown) (unknown) (no (unknown) (unknown) Atrial (units (unkno wn) date) fibrillation with unknown) controlled ventricular rate (unknown) (no (unknown) (unknown) Attending Dr: (units ( unknown) date) Dmitri Duenas unknown) TECHNOLOGY ANALYST (unknown) (no (unknown) (unknown) Attitude: (units (unkn own) date) cooperative unknown) (unknown) (no (unknown) (unknown) Auto CPAP set (units ( unknown) date) pressures: 8-14 unknown) CWP (unknown) (no (unknown) (unknown) Being a (units (unkno wn) date) passenger in a unknown) motor vehicle for an hour or so: 0 = Never (None) (unknown) (no (unknown) (unknown) Brother (units (unknown) date) Heart attack unknown) (unknown) (no (unknown) (unknown) CPAP (8-14 cwp) (units (unknown) date) unknown) (unknown) (no (unknown) (unknown) Chief Complaint: (units (unknown) date) Follow up CPAP unknown) therapy for JACINTO (unknown) (no (unknown) (unknown) Claritin has (units (u nknown) date) resolved the unknown) headaches. (unknown) (no (unknown) (unknown) Clinical Course (units (unknown) date) unknown) (unknown) (no (unknown) (unknown) Cognition: (units (unk nown) date) normal cognition unknown) (unknown) (no (unknown) (unknown) Compliance (units (unk nown) date) review in one unknown) month (unknown) (no (unknown) (unknown) Condition is (units (u nknown) date) Onset: Chronic unknown) and ongoing condition (unknown) (no (unknown) (unknown) Confirmed (units (unkn own) date) 06/29/22] unknown) (unknown) (no (unknown) (unknown) Conjunctivae: (units ( unknown) date) conjunctivae unknown) normal (unknown) (no (unknown) (unknown) Const (units (unkno wn) date) unknown) (unknown) (no (unknown) (unknown) Currently using (units (unknown) date) CPAP 8-14 cwp. unknown) Compliance data was reviewed and implications of (unknown) (no (unknown) (unknown) DME: [place] (units (unk nown) date) unknown) (unknown) (no (unknown) (unknown) : 1935 (units (unknown) date) Acct:[id number] unknown) (unknown) (no (unknown) (unknown) Dept at (units (unkno wn) date) . unknown) (unknown) (no (unknown) (unknown) Details: (units (unkno wn) date) unknown) (unknown) (no (unknown) (unknown) Device data last (units (unknown) date) 90 days: unknown) (unknown) (no (unknown) (unknown) Device setup: (units ( unknown) date) 07/25/2021 unknown) (unknown) (no (unknown) (unknown) Documented By: (units (unknown) date) Dmitri Duenas unknown) TECHNOLOGY ANALYST 06/29/22 1453 (unknown) (no (unknown) (unknown) Drowsy driving (units (unknown) date) handout made unknown) available. (unknown) (no (unknown) (unknown) Ears: hearing (units ( unknown) date) grossly normal unknown) bilaterally (unknown) (no (unknown) (unknown) Effort + (units (unkno wn) date) Inspection: unknown) normal respiratory effort, able to speak in complete (unknown) (no (unknown) (unknown) Jay Em Score: (units (unknown) date) 12 unknown) (unknown) (no (unknown) (unknown) Jay Em (units (unkno wn) date) Sleepiness Scale unknown) (unknown) (no (unknown) (unknown) Exam (units (unkno wn) date) unknown) (unknown) (no (unknown) (unknown) Exam Narrative (units (unknown) date) unknown) (unknown) (no (unknown) (unknown) Exam Narrative: (units (unknown) date) unknown) (unknown) (no (unknown) (unknown) Excessive (units (unkn own) date) daytime unknown) sleepiness (unknown) (no (unknown) (unknown) Eyes (units (unkno wn) date) unknown) (unknown) (no (unknown) (unknown) Family History (units (unknown) date) (Reviewed unknown) 12/27/21 @ 09:08 by Rah Pitts MD) (unknown) (no (unknown) (unknown) Father (units (unknown) date) Heart attack unknown) (unknown) (no (unknown) (unknown) General: (units (unkno wn) date) cooperative, unknown) comfortable and no acute distress (unknown) (no (unknown) (unknown) General: patient (units (unknown) date) alert, patient unknown) awake and patient oriented x3 (unknown) (no (unknown) (unknown) HENMT (units (unkno wn) date) unknown) (unknown) (no (unknown) (unknown) HPI (units (unkno wn) date) unknown) (unknown) (no (unknown) (unknown) HPI Sleep Follow (units (unknown) date) Up unknown) (unknown) (no (unknown) (unknown) Head: normal to (units (unknown) date) inspection unknown) (unknown) (no (unknown) (unknown) History of (units (unk nown) date) adenoidectomy unknown) (unknown) (no (unknown) (unknown) History of (units (unk nown) date) hernia surgery unknown) (unknown) (no (unknown) (unknown) 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 For this a unknown) diagnostic sleep study was performed and (unknown) (no (unknown) (unknown) Mallampati score (units (unknown) date) of IV.? 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) associated with unknown) adverse incidents (unknown) (no (unknown) (unknown) Medications (units (un known) date) unknown) (unknown) (no (unknown) (unknown) Moderate chance (units (unknown) date) of dozing or unknown) sleeping, 3 = High chance of dozing or sleeping (unknown) (no (unknown) (unknown) Mood: congruent (units (unknown) date) mood unknown) (unknown) (no (unknown) (unknown) Neck (units (unkno wn) date) unknown) (unknown) (no (unknown) (unknown) Neck: normal (units (u nknown) date) visual inspection unknown) (unknown) (no (unknown) (unknown) Neuro (units (unkno wn) date) unknown) (unknown) (no (unknown) (unknown) JACINTO. (units (unkno wn) date) unknown) (unknown) (no (unknown) (unknown) Obstructive (units (un known) date) sleep apnea of unknown) adult (unknown) (no (unknown) (unknown) PFSH (units (unkno wn) date) unknown) (unknown) (no (unknown) (unknown) Pacemaker (units (unkn own) date) unknown) (unknown) (no (unknown) (unknown) Pain (units (unkno wn) date) unknown) (unknown) (no (unknown) (unknown) Pain scale (units (unk nown) date) (1-10): 8 unknown) (unknown) (no (unknown) (unknown) Patient (units (unkno wn) date) instructed to use unknown) scheduled naps as needed for drowsiness safety (unknown) (no (unknown) (unknown) Patient is on (units ( unknown) date) nasal CPAP at unknown) 8-14 cwp and he is using it regularly. He is (unknown) (no (unknown) (unknown) Patient reports (units (unknown) date) difficulty unknown) falling asleep is denied, difficulty staying asleep (unknown) (no (unknown) (unknown) Patient was (units (un known) date) encouraged to unknown) continue PAP therapy at 8-16 cwp. (unknown) (no (unknown) (unknown) Patient was (units (un known) date) encouraged to unknown) maintain CPAP usage at a minimum of 4 hours a night, (unknown) (no (unknown) (unknown) Patient was (units (un known) date) instructed to unknown) avoid driving or operating heavy machinery when (unknown) (no (unknown) (unknown) Patient was (units (un known) date) instructed to unknown) return sooner if any questions or concerns arise. (unknown) (no (unknown) (unknown) Patient: (units (unkno wn) date) Rah Nair unknown) MR#: [id number] (unknown) (no (unknown) (unknown) Pertinent (units (unkn own) date) Positives/Negativ unknown) es (unknown) (no (unknown) (unknown) Plan (units (unkno wn) date) unknown) (unknown) (no (unknown) (unknown) Psych (units (unkno wn) date) unknown) (unknown) (no (unknown) (unknown) Psychological (units ( unknown) date) unknown) (unknown) (no (unknown) (unknown) Questionnaires (units (unknown) date) unknown) (unknown) (no (unknown) (unknown) ROS Sleep (units (unkn own) date) unknown) (unknown) (no (unknown) (unknown) Reaching maximum (units (unknown) date) pressure, agrees unknown) to adjusted pressure. (unknown) (no (unknown) (unknown) Reaching maximum (units (unknown) date) pressure. Agrees unknown) to try adjusted pressure. (unknown) (no (unknown) (unknown) Reason For Visit (units (unknown) date) unknown) (unknown) (no (unknown) (unknown) Reports daytime (units (unknown) date) sleepiness and unknown) Denies difficulty sleeping (unknown) (no (unknown) (unknown) Reports napping (units (unknown) date) on a regular unknown) basis (unknown) (no (unknown) (unknown) ResMed AirSense (units (unknown) date) 10 12/27/21 unknown) [History Confirmed 06/29/22] (unknown) (no (unknown) (unknown) Resp (units (unkno wn) date) unknown) (unknown) (no (unknown) (unknown) Return visit in (units (unknown) date) 6 months to unknown) assess continued response to PAP therapy (unknown) (no (unknown) (unknown) Sclera: sclerae (units (unknown) date) normal unknown) (unknown) (no (unknown) (unknown) Severe JACINTO. (units (unk nown) date) Patient reported unknown) a history of snoring and a disturbed sleep pattern. (unknown) (no (unknown) (unknown) Signed By: (units (unk nown) date) unknown) (unknown) (no (unknown) (unknown) Sitting and (units (un known) date) Readin = High unknown) (unknown) (no (unknown) (unknown) Sitting and (units (un known) date) talking to unknown) someone: 0 = Never (None) (unknown) (no (unknown) (unknown) Sitting inactive (units (unknown) date) in a public unknown) place: 0 = Never (None) (unknown) (no (unknown) (unknown) Sitting quietly (units (unknown) date) after lunch (no unknown) alcohol): 3 = High (unknown) (no (unknown) (unknown) Sleep Schedule (units (unknown) date) Branch: unknown) consistent, daytime somnolence frequent, snoring not (unknown) (no (unknown) (unknown) Smoking Status: (units (unknown) date) Former smoker unknown) (unknown) (no (unknown) (unknown) Snoring (units (unkno wn) date) unknown) (unknown) (no (unknown) (unknown) Social History (units (unknown) date) unknown) (unknown) (no (unknown) (unknown) Speech and (units (unk nown) date) Movement: speech unknown) and movement normal (unknown) (no (unknown) (unknown) Speech: speech (units (unknown) date) normal unknown) (unknown) (no (unknown) (unknown) Stopped for a (units ( unknown) date) few minutes in unknown) traffic: 0 = Never (None) (unknown) (no (unknown) (unknown) Surgical History (units (unknown) date) (Reviewed unknown) 12/27/21 @ 09:08 by Rah Pitts MD) (unknown) (no (unknown) (unknown) Symptoms (units (unkno wn) date) unknown) (unknown) (no (unknown) (unknown) The patient (units (un known) date) reported symptoms unknown) of excessive daytime sleepiness as evidenced by (unknown) (no (unknown) (unknown) There is also a (units (unknown) date) history of unknown) hypertension and ischemic heart disease with a (unknown) (no (unknown) (unknown) This note may (units ( unknown) date) have been all or unknown) partially generated using voice recognition (unknown) (no (unknown) (unknown) Tobacco + (units (unkn own) date) Substance Use unknown) (unknown) (no (unknown) (unknown) Tobacco Status (units (unknown) date) unknown) (unknown) (no (unknown) (unknown) Treatment (units (unkn own) date) Effects: Pap unknown) Treatment Response/Side Effects: adherent to current PAP (unknown) (no (unknown) (unknown) Treatment (units (unkn own) date) Response/Side unknown) Affects (unknown) (no (unknown) (unknown) Usage: 100% with (units (unknown) date) 100% greater than unknown) 4 hours. Leak 5.6 L/min. AHIflow: 5.1 (unknown) (no (unknown) (unknown) Visit Reasons: (units (unknown) date) 6m -norco/we unknown) reschld from 06/27 (unknown) (no (unknown) (unknown) Visit type (FU): (units (unknown) date) follow up of JACINTO unknown) therapy Follow up evaluation of JACINTO therapy: (unknown) (no (unknown) (unknown) Was having (units (unkn own) date) morning headaches unknown) on occasion and memory issues. An NPO was performed (unknown) (no (unknown) (unknown) Watching TV: 3 = (units (unknown) date) High unknown) (unknown) (no (unknown) (unknown) a primary (units (unkn own) date) problem. He unknown) reports improved daytime sleepiness, but he is still (unknown) (no (unknown) (unknown) alcohol intake: (units (unknown) date) current unknown) (unknown) (no (unknown) (unknown) amlodipine (units (unk nown) date) Adverse Reaction unknown) (Mild, Verified 06/29/22 15:05) (unknown) (no (unknown) (unknown) and symptoms (units (u nknown) date) reviewed. unknown) Continue with scheduled naps as needed. (unknown) (no (unknown) (unknown) apixaban 5 mg (units (u nknown) date) tablet (Eliquis) unknown) 5 mg PO BID 06/08/21 [History Confirmed 06/29/22] (unknown) (no (unknown) (unknown) appreciated, (units (u nknown) date) apnea not unknown) witnessed, choking or gasping Choking or Gasping Branch: (unknown) (no (unknown) (unknown) benazepril 20 mg (units (unknown) date) tablet 40 mg PO unknown) BID 06/29/22 [History Confirmed 06/29/22] (unknown) (no (unknown) (unknown) but increased (units ( unknown) date) benefit from more unknown) usage was also explained. (unknown) (no (unknown) (unknown) carvedilol 25 mg (units (unknown) date) tablet 25 mg PO unknown) BID 06/29/22 [History Confirmed 06/29/22] (unknown) (no (unknown) (unknown) carvedilol (units (unk nown) date) Adverse Reaction unknown) (Mild, Verified 06/29/22 15:05) (unknown) (no (unknown) (unknown) coenzyme Q10 100 (units (unknown) date) mg tablet 100 mg unknown) PO DAILY 01/25/21 [History Confirmed 06/29/22] (unknown) (no (unknown) (unknown) continue with (units ( unknown) date) PAP therapy. unknown) (unknown) (no (unknown) (unknown) contribute to (units ( unknown) date) that. He feels he unknown) is sleeping well. (unknown) (no (unknown) (unknown) currently (units (unkn own) date) reporting no unknown) difficulties with the machine, mask or pressure. He (unknown) (no (unknown) (unknown) cyanocobalamin (units (unknown) date) (vitamin B-12) unknown) 500 mcg tablet (Vitamin B-12) 500 mcg PO DAILY (unknown) (no (unknown) (unknown) daytime (units (unkno wn) date) sleepiness and unknown) fatigue. There is also a history of atrial fibrillation, (unknown) (no (unknown) (unknown) daytime sleeping (units (unknown) date) and an originally unknown) elevated Jay Em Sleepiness Scale score of (unknown) (no (unknown) (unknown) demonstrates a (units (unknown) date) positive clinical unknown) response, by his optimal flowAHI. He still (unknown) (no (unknown) (unknown) denied, early (units ( unknown) date) morning awakening unknown) denied, spending time in bed not sleeping a (unknown) (no (unknown) (unknown) denied, epworth (units (unknown) date) sleep scale score unknown) (11/11) and bruxism (denied) (unknown) (no (unknown) (unknown) denies night (units (u nknown) date) sweats, denies unknown) morning headache, denies nasal congestion at night, (unknown) (no (unknown) (unknown) denies nocturnal (units (unknown) date) palpitations, unknown) denies heart burn symptoms at night, reports (unknown) (no (unknown) (unknown) drowsy. (units (unkno wn) date) unknown) (unknown) (no (unknown) (unknown) escitalopram (units (u nknown) date) oxalate 5 mg unknown) tablet (Lexapro) 5 mg PO DAILY 06/29/22 [History (unknown) (no (unknown) (unknown) events below (units (u nknown) date) 90%. States he is unknown) no longer having morning headaches. States (unknown) (no (unknown) (unknown) ezetimibe [From (units (unknown) date) Vytorin] Adverse unknown) Reaction (Mild, Verified 06/29/22 15:05) (unknown) (no (unknown) (unknown) findings (units (unkno wn) date) discussed. unknown) Patient's compliance is excellent with positive clinical (unknown) (no (unknown) (unknown) for which he (units (u nknown) date) started CPAP. unknown) After a brief course of PAP therapy, he transitioned (unknown) (no (unknown) (unknown) glucosamine HCl (units (unknown) date) 500 mg tablet 500 unknown) mg PO DAILY 07/07/21 [History Confirmed (unknown) (no (unknown) (unknown) have occurred. (units (unknown) date) If there are any unknown) questions, please contact the Medical Records (unknown) (no (unknown) (unknown) he was again (units (un known) date) symptomatic, unknown) repeated his sleep study, and was found to have severe (unknown) (no (unknown) (unknown) household (units (unkn own) date) members: spouse unknown) (unknown) (no (unknown) (unknown) hypertension, (units ( unknown) date) hyperlipidemia, unknown) and ischemic heart disease, as well as a (unknown) (no (unknown) (unknown) little, normal (units (unknown) date) bedtime (2200), unknown) normal wake time ([id number]), sleep schedule (unknown) (no (unknown) (unknown) marital status: (units (unknown) date) unknown) (unknown) (no (unknown) (unknown) may occur. (units (unk nown) date) Occasional unknown) wrong-word or 'sound-alike' substitutions may have (unknown) (no (unknown) (unknown) napping daily (units ( unknown) date) with an Jay Em unknown) Sleepiness Scale score of 12/24. Drowsiness risks (unknown) (no (unknown) (unknown) nebivolol (units (unkn own) date) Adverse Reaction unknown) (Mild, Verified 06/29/22 15:05) (unknown) (no (unknown) (unknown) nocturia (4 or 5 (units (unknown) date) times per night), unknown) denies pain, denies dizziness in the morning (unknown) (no (unknown) (unknown) occurred due to (units (unknown) date) the inherent unknown) limitations of voice recognition software. Please (unknown) (no (unknown) (unknown) on PAP well, (units (un known) date) sleep quality unknown) okay and daytime sleepiness Daytime Sleepiness Branch (unknown) (no (unknown) (unknown) or denies (units (unkn own) date) trouble unknown) consentrating/foc using durng the day (unknown) (no (unknown) (unknown) oxybutynin (units (unk nown) date) chloride 5 mg unknown) tablet 5 mg PO BEDTIME 12/27/21 [History Confirmed (unknown) (no (unknown) (unknown) pets and (units (unkno wn) date) animals: Yes unknown) (dog) (unknown) (no (unknown) (unknown) read the note (units ( unknown) date) carefully and unknown) recognize, using context, where these substitutions (unknown) (no (unknown) (unknown) reports daytime (units (unknown) date) sleepiness, but unknown) has multiple other medical problems which (unknown) (no (unknown) (unknown) reports dry (units (un known) date) mouth, denies unknown) sore throat in the morning, denies nocturnal cough, (unknown) (no (unknown) (unknown) response (units (unkno wn) date) including no unknown) snoring and good AHIflow.?The patient is willing to (unknown) (no (unknown) (unknown) rosuvastatin 20 (units (unknown) date) mg tablet 10 mg unknown) PO DAILY 08/13/19 [History Confirmed 06/29/22] (unknown) (no (unknown) (unknown) sentences and no (units (unknown) date) audible wheezes unknown) (unknown) (no (unknown) (unknown) showed severe (units ( unknown) date) obstructive sleep unknown) apnea.?For this he has been on nasal CPAP. (unknown) (no (unknown) (unknown) simvastatin (units (un known) date) [From Vytorin] unknown) Adverse Reaction (Mild, Verified 06/29/22 15:05) (unknown) (no (unknown) (unknown) software. (units (unkn own) date) Although every unknown) effort is made to edit content, collision center manager errors (unknown) (no (unknown) (unknown) spironolactone 25 (units (unknown) date) mg tablet 25 mg unknown) PO DAILY 06/29/22 [History Confirmed 06/29/22] (unknown) (no (unknown) (unknown) to assess (units (unkn own) date) effectiveness of unknown) his CPAP therapy and he was not having desaturation (unknown) (no (unknown) (unknown) to oral (units (unkno wn) date) appliance because unknown) he had chronic nasal obstruction/conge stion. By 2009 (unknown) (no (unknown) (unknown) treatment stable (units (unknown) date) on treatment unknown) Result panel 5 (unknown) (no (unknown) (unknown) (no value) (units (unk nown) date) unknown) (unknown) (no (unknown) (unknown) Assessment and (units (unknown) date) Plan: unknown) (unknown) (no (unknown) (unknown) Status: Chronic (units (unknown) date) unknown) (unknown) (no (unknown) (unknown) (no value) (units (unk nown) date) unknown) (unknown) (no (unknown) (unknown) 06/29/22 (units (unkno wn) date) unknown) (unknown) (no (unknown) (unknown) 06/29/22 1713 (units ( unknown) date) unknown) (unknown) (no (unknown) (unknown) 15:09 (units (unkno wn) date) unknown) (unknown) (no (unknown) (unknown) ARTHRALGIAS (units (un known) date) unknown) (unknown) (no (unknown) (unknown) ARTHRALGIAS, (units (u nknown) date) MALAISE unknown) (unknown) (no (unknown) (unknown) VIDAL Reddy (units ( unknown) date) [id number] unknown) (unknown) (no (unknown) (unknown) BRADYCARDIA (units (un known) date) unknown) (unknown) (no (unknown) (unknown) MALAISE (units (unkno wn) date) unknown) (unknown) (no (unknown) (unknown) Signed (units (unkno wn) date) unknown) (unknown) (no (unknown) (unknown) Sleep Visit (units (un known) date) unknown) (unknown) (no (unknown) (unknown) [facility] unknown) (unknown) (no (unknown) (unknown) (no value) (units (unk nown) date) unknown) (unknown) (no (unknown) (unknown) Severe JACINTO. (units (un known) date) Initially unknown) presented to [facility] [place] in 2006 with a history of snoring, (unknown) (no (unknown) (unknown) (1) Obstructive (units (unknown) date) sleep apnea of unknown) adult: (unknown) (no (unknown) (unknown) (2) Excessive (units ( unknown) date) daytime unknown) sleepiness: (unknown) (no (unknown) (unknown) 0 = Would never (units (unknown) date) doze or sleep, 1 unknown) = Slight chance of dozing or sleeping, 2 = (unknown) (no (unknown) (unknown) [id number] (units (unkno wn) date) unknown) (unknown) (no (unknown) (unknown) 01/25/21 (units (unkno wn) date) [History unknown) Confirmed 06/29/22] (unknown) (no (unknown) (unknown) 06/29/22 (units (unkno wn) date) unknown) (unknown) (no (unknown) (unknown) 06/29/22] (units (unkn own) date) unknown) (unknown) (no (unknown) (unknown) .? This can (units (unknown) date) be seen secondary unknown) to sleep apnea, medical conditions or can be (unknown) (no (unknown) (unknown) 2: better (units (unkn own) date) unknown) (unknown) (no (unknown) (unknown) Affect: normal (units (unknown) date) affect unknown) (unknown) (no (unknown) (unknown) Age/Sex: 87 / M (units (unknown) date) Date of Service: unknown) (unknown) (no (unknown) (unknown) Allergies (units (unkn own) date) unknown) (unknown) (no (unknown) (unknown) Appearance: (units (un known) date) grossly normal unknown) (unknown) (no (unknown) (unknown) Assessment + (units (u nknown) date) Plan unknown) (unknown) (no (unknown) (unknown) Atrial (units (unkno wn) date) fibrillation with unknown) controlled ventricular rate (unknown) (no (unknown) (unknown) Attending Dr: (units ( unknown) date) Dmitri Duenas unknown) TECHNOLOGY ANALYST (unknown) (no (unknown) (unknown) Attitude: (units (unkn own) date) cooperative unknown) (unknown) (no (unknown) (unknown) Auto CPAP set (units ( unknown) date) pressures: 8-14 unknown) CWP (unknown) (no (unknown) (unknown) BMI 26.4 (units (unkno wn) date) unknown) (unknown) (no (unknown) (unknown) BP 158/91 H (units (un known) date) unknown) (unknown) (no (unknown) (unknown) Being a (units (unkno wn) date) passenger in a unknown) motor vehicle for an hour or so: 0 = Never (None) (unknown) (no (unknown) (unknown) Blood Pressure (units (unknown) date) Location Lt unknown) brachial (unknown) (no (unknown) (unknown) Brother (units (unknown) date) Heart attack unknown) (unknown) (no (unknown) (unknown) CPAP (8-14 cwp) (units (unknown) date) unknown) (unknown) (no (unknown) (unknown) Chief Complaint: (units (unknown) date) Follow up CPAP unknown) therapy for JACINTO (unknown) (no (unknown) (unknown) Claritin has (units (u nknown) date) resolved the unknown) headaches. (unknown) (no (unknown) (unknown) Clinical Course (units (unknown) date) unknown) (unknown) (no (unknown) (unknown) Cognition: (units (unk nown) date) normal cognition unknown) (unknown) (no (unknown) (unknown) Compliance (units (unk nown) date) review in one unknown) month (unknown) (no (unknown) (unknown) Condition is (units (u nknown) date) Onset: Chronic unknown) and ongoing condition (unknown) (no (unknown) (unknown) Confirmed (units (unkn own) date) 06/29/22] unknown) (unknown) (no (unknown) (unknown) Conjunctivae: (units ( unknown) date) conjunctivae unknown) normal (unknown) (no (unknown) (unknown) Const (units (unkno wn) date) unknown) (unknown) (no (unknown) (unknown) Currently using (units (unknown) date) CPAP 8-14 cwp. unknown) Compliance data was reviewed and implications of (unknown) (no (unknown) (unknown) DME: [place] (units (unk nown) date) unknown) (unknown) (no (unknown) (unknown) : 1935 (units (unknown) date) Acct:[id number] unknown) (unknown) (no (unknown) (unknown) Details: (units (unkno wn) date) unknown) (unknown) (no (unknown) (unknown) Device data last (units (unknown) date) 90 days: unknown) (unknown) (no (unknown) (unknown) Device setup: (units ( unknown) date) 07/25/2021 unknown) (unknown) (no (unknown) (unknown) Documented By: (units (unknown) date) Dmitri Duenas unknown) TECHNOLOGY ANALYST 06/29/22 1453 (unknown) (no (unknown) (unknown) Drowsy driving (units (unknown) date) handout made unknown) available. (unknown) (no (unknown) (unknown) Ears: hearing (units ( unknown) date) grossly normal unknown) bilaterally (unknown) (no (unknown) (unknown) Effort + (units (unkno wn) date) Inspection: unknown) normal respiratory effort, able to speak in complete (unknown) (no (unknown) (unknown) Jay Em Score: (units (unknown) date) 12 unknown) (unknown) (no (unknown) (unknown) Jay Em (units (unkno wn) date) Sleepiness Scale unknown) (unknown) (no (unknown) (unknown) Exam (units (unkno wn) date) unknown) (unknown) (no (unknown) (unknown) Exam Narrative (units (unknown) date) unknown) (unknown) (no (unknown) (unknown) Exam Narrative: (units (unknown) date) unknown) (unknown) (no (unknown) (unknown) Excessive (units (unkn own) date) daytime unknown) sleepiness (unknown) (no (unknown) (unknown) Eyes (units (unkno wn) date) unknown) (unknown) (no (unknown) (unknown) Family History (units (unknown) date) (Reviewed unknown) 12/27/21 @ 09:08 by Rah Pitts MD) (unknown) (no (unknown) (unknown) Father (units (unknown) date) Heart attack unknown) (unknown) (no (unknown) (unknown) General: (units (unkno wn) date) cooperative, unknown) comfortable and no acute distress (unknown) (no (unknown) (unknown) General: patient (units (unknown) date) alert, patient unknown) awake and patient oriented x3 (unknown) (no (unknown) (unknown) HENMT (units (unkno wn) date) unknown) (unknown) (no (unknown) (unknown) HPI (units (unkno wn) date) unknown) (unknown) (no (unknown) (unknown) HPI Sleep Follow (units (unknown) date) Up unknown) (unknown) (no (unknown) (unknown) Head: normal to (units (unknown) date) inspection unknown) (unknown) (no (unknown) (unknown) Height 186.69 cm (units (unknown) date) unknown) (unknown) (no (unknown) (unknown) History of (units (unk nown) date) adenoidectomy unknown) (unknown) (no (unknown) (unknown) History of (units (unk nown) date) hernia surgery unknown) (unknown) (no (unknown) (unknown) 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 For this a unknown) diagnostic sleep study was performed and (unknown) (no (unknown) (unknown) Mallampati score (units (unknown) date) of IV.? 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) associated with unknown) adverse incidents (unknown) (no (unknown) (unknown) Medications (units (un known) date) unknown) (unknown) (no (unknown) (unknown) Moderate chance (units (unknown) date) of dozing or unknown) sleeping, 3 = High chance of dozing or sleeping (unknown) (no (unknown) (unknown) Mood: congruent (units (unknown) date) mood unknown) (unknown) (no (unknown) (unknown) Neck (units (unkno wn) date) unknown) (unknown) (no (unknown) (unknown) Neck: normal (units (u nknown) date) visual inspection unknown) (unknown) (no (unknown) (unknown) Neuro (units (unkno wn) date) unknown) (unknown) (no (unknown) (unknown) JACINTO. (units (unkno wn) date) unknown) (unknown) (no (unknown) (unknown) Obstructive (units (un known) date) sleep apnea of unknown) adult (unknown) (no (unknown) (unknown) PFSH (units (unkno wn) date) unknown) (unknown) (no (unknown) (unknown) Pacemaker (units (unkn own) date) unknown) (unknown) (no (unknown) (unknown) Pain (units (unkno wn) date) unknown) (unknown) (no (unknown) (unknown) Pain scale (units (unk nown) date) (1-10): 8 unknown) (unknown) (no (unknown) (unknown) Patient (units (unkno wn) date) instructed to use unknown) scheduled naps as needed for drowsiness safety (unknown) (no (unknown) (unknown) Patient is on (units ( unknown) date) nasal CPAP at unknown) 8-14 cwp and he is using it regularly. He is (unknown) (no (unknown) (unknown) Patient reports (units (unknown) date) difficulty unknown) falling asleep is denied, difficulty staying asleep (unknown) (no (unknown) (unknown) Patient was (units (un known) date) encouraged to unknown) continue PAP therapy at 8-16 cwp. (unknown) (no (unknown) (unknown) Patient was (units (un known) date) encouraged to unknown) maintain CPAP usage at a minimum of 4 hours a night, (unknown) (no (unknown) (unknown) Patient was (units (un known) date) instructed to unknown) avoid driving or operating heavy machinery when (unknown) (no (unknown) (unknown) Patient was (units (un known) date) instructed to unknown) return sooner if any questions or concerns arise. (unknown) (no (unknown) (unknown) Patient: (units (unkno wn) date) Rah Nair unknown) MR#: [id number] (unknown) (no (unknown) (unknown) Pertinent (units (unkn own) date) Positives/Negativ unknown) es (unknown) (no (unknown) (unknown) Plan (units (unkno wn) date) unknown) (unknown) (no (unknown) (unknown) Position Sitting (units (unknown) date) unknown) (unknown) (no (unknown) (unknown) Psych (units (unkno wn) date) unknown) (unknown) (no (unknown) (unknown) Psychological (units ( unknown) date) unknown) (unknown) (no (unknown) (unknown) Pulse 63 (units (unkno wn) date) unknown) (unknown) (no (unknown) (unknown) Pulse Source (units (u nknown) date) Monitor unknown) (unknown) (no (unknown) (unknown) Questionnaires (units (unknown) date) unknown) (unknown) (no (unknown) (unknown) ROS Sleep (units (unkn own) date) unknown) (unknown) (no (unknown) (unknown) Reaching maximum (units (unknown) date) pressure, AHIflow unknown) increased since last visit. He agrees to (unknown) (no (unknown) (unknown) Reaching maximum (units (unknown) date) pressure. Agrees unknown) to try adjusted pressure. (unknown) (no (unknown) (unknown) Reason For Visit (units (unknown) date) unknown) (unknown) (no (unknown) (unknown) Reports daytime (units (unknown) date) sleepiness and unknown) Denies difficulty sleeping (unknown) (no (unknown) (unknown) Reports napping (units (unknown) date) on a regular unknown) basis (unknown) (no (unknown) (unknown) ResMed AirSense (units (unknown) date) 10 12/27/21 unknown) [History Confirmed 06/29/22] (unknown) (no (unknown) (unknown) Resp (units (unkno wn) date) unknown) (unknown) (no (unknown) (unknown) Respiration 14 (units (unknown) date) unknown) (unknown) (no (unknown) (unknown) Return visit in (units (unknown) date) 6 months to unknown) assess continued response to PAP therapy (unknown) (no (unknown) (unknown) Sclera: sclerae (units (unknown) date) normal unknown) (unknown) (no (unknown) (unknown) Severe JACINTO. (units (unk nown) date) Patient reported unknown) a history of snoring and a disturbed sleep pattern. (unknown) (no (unknown) (unknown) Signed By: (units (unk nown) date) <Electronically unknown) signed by Dmitri Duenas> (unknown) (no (unknown) (unknown) Sitting and (units (un known) date) Readin = High unknown) (unknown) (no (unknown) (unknown) Sitting and (units (un known) date) talking to unknown) someone: 0 = Never (None) (unknown) (no (unknown) (unknown) Sitting inactive (units (unknown) date) in a public unknown) place: 0 = Never (None) (unknown) (no (unknown) (unknown) Sitting quietly (units (unknown) date) after lunch (no unknown) alcohol): 3 = High (unknown) (no (unknown) (unknown) Sleep Schedule (units (unknown) date) Branch: unknown) consistent, daytime somnolence frequent, snoring not (unknown) (no (unknown) (unknown) Smoking Status: (units (unknown) date) Former smoker unknown) (unknown) (no (unknown) (unknown) Snoring (units (unkno wn) date) unknown) (unknown) (no (unknown) (unknown) Social History (units (unknown) date) unknown) (unknown) (no (unknown) (unknown) Speech and (units (unk nown) date) Movement: speech unknown) and movement normal (unknown) (no (unknown) (unknown) Speech: speech (units (unknown) date) normal unknown) (unknown) (no (unknown) (unknown) Stopped for a (units ( unknown) date) few minutes in unknown) traffic: 0 = Never (None) (unknown) (no (unknown) (unknown) Surgical History (units (unknown) date) (Reviewed unknown) 12/27/21 @ 09:08 by Rah Pitts MD) (unknown) (no (unknown) (unknown) Symptoms (units (unkno wn) date) unknown) (unknown) (no (unknown) (unknown) Temp 97.6 F (units (un known) date) unknown) (unknown) (no (unknown) (unknown) Temp Source (units (un known) date) Temporal Artery unknown) Scan (unknown) (no (unknown) (unknown) The patient (units (un known) date) reported symptoms unknown) of excessive daytime sleepiness as evidenced by (unknown) (no (unknown) (unknown) There is also a (units (unknown) date) history of unknown) hypertension and ischemic heart disease with a (unknown) (no (unknown) (unknown) This note may (units ( unknown) date) have been all or unknown) partially generated using voice recognition (unknown) (no (unknown) (unknown) Tobacco + (units (unkn own) date) Substance Use unknown) (unknown) (no (unknown) (unknown) Tobacco Status (units (unknown) date) unknown) (unknown) (no (unknown) (unknown) Treatment (units (unkn own) date) Effects: Pap unknown) Treatment Response/Side Effects: adherent to current PAP (unknown) (no (unknown) (unknown) Treatment (units (unkn own) date) Response/Side unknown) Affects (unknown) (no (unknown) (unknown) Usage: 100% with (units (unknown) date) 100% greater than unknown) 4 hours. Leak 5.6 L/min. AHIflow: 5.1 (unknown) (no (unknown) (unknown) Visit Reasons: (units (unknown) date) 6m -norco/we unknown) reschld from 06/27 (unknown) (no (unknown) (unknown) Visit type (FU): (units (unknown) date) follow up of JACINTO unknown) therapy Follow up evaluation of JACINTO therapy: (unknown) (no (unknown) (unknown) Vitals (units (unkno wn) date) unknown) (unknown) (no (unknown) (unknown) Was having (units (unkn own) date) morning headaches unknown) on occasion and memory issues. An NPO was performed (unknown) (no (unknown) (unknown) Watching TV: 3 = (units (unknown) date) High unknown) (unknown) (no (unknown) (unknown) Weight 92.079 kg (units (unknown) date) unknown) (unknown) (no (unknown) (unknown) a primary (units (unkn own) date) problem. He unknown) reports improved daytime sleepiness, but he is still (unknown) (no (unknown) (unknown) adjusted (units (unkno wn) date) pressure. unknown) (unknown) (no (unknown) (unknown) alcohol intake: (units (unknown) date) current unknown) (unknown) (no (unknown) (unknown) amlodipine (units (unk nown) date) Adverse Reaction unknown) (Mild, Verified 06/29/22 15:05) (unknown) (no (unknown) (unknown) and symptoms (units (u nknown) date) reviewed. unknown) Continue with scheduled naps as needed. (unknown) (no (unknown) (unknown) apixaban 5 mg (units (u nknown) date) tablet (Eliquis) unknown) 5 mg PO BID 06/08/21 [History Confirmed 06/29/22] (unknown) (no (unknown) (unknown) appreciated, (units (u nknown) date) apnea not unknown) witnessed, choking or gasping Choking or Gasping Branch: (unknown) (no (unknown) (unknown) at (units (unkno wn) date) . unknown) (unknown) (no (unknown) (unknown) benazepril 20 mg (units (unknown) date) tablet 40 mg PO unknown) BID 06/29/22 [History Confirmed 06/29/22] (unknown) (no (unknown) (unknown) but increased (units ( unknown) date) benefit from more unknown) usage was also explained. (unknown) (no (unknown) (unknown) carvedilol 25 mg (units (unknown) date) tablet 25 mg PO unknown) BID 06/29/22 [History Confirmed 06/29/22] (unknown) (no (unknown) (unknown) carvedilol (units (unk nown) date) Adverse Reaction unknown) (Mild, Verified 06/29/22 15:05) (unknown) (no (unknown) (unknown) coenzyme Q10 100 (units (unknown) date) mg tablet 100 mg unknown) PO DAILY 01/25/21 [History Confirmed 06/29/22] (unknown) (no (unknown) (unknown) contribute to (units ( unknown) date) that. He feels he unknown) is sleeping well. (unknown) (no (unknown) (unknown) currently (units (unkn own) date) reporting no unknown) difficulties with the machine, mask or pressure. He (unknown) (no (unknown) (unknown) cyanocobalamin (units (unknown) date) (vitamin B-12) unknown) 500 mcg tablet (Vitamin B-12) 500 mcg PO DAILY (unknown) (no (unknown) (unknown) daytime (units (unkno wn) date) sleepiness and unknown) fatigue. There is also a history of atrial fibrillation, (unknown) (no (unknown) (unknown) daytime sleeping (units (unknown) date) and an originally unknown) elevated Jay Em Sleepiness Scale score of (unknown) (no (unknown) (unknown) demonstrates a (units (unknown) date) positive clinical unknown) response, by his optimal flowAHI. He still (unknown) (no (unknown) (unknown) denied, early (units ( unknown) date) morning awakening unknown) denied, spending time in bed not sleeping a (unknown) (no (unknown) (unknown) denied, epworth (units (unknown) date) sleep scale score unknown) (11/11) and bruxism (denied) (unknown) (no (unknown) (unknown) denies night (units (u nknown) date) sweats, denies unknown) morning headache, denies nasal congestion at night, (unknown) (no (unknown) (unknown) drowsy. (units (unkno wn) date) unknown) (unknown) (no (unknown) (unknown) due to the (units (unk nown) date) inherent unknown) limitations of voice recognition software. Please read the (unknown) (no (unknown) (unknown) enies nocturnal (units (unknown) date) palpitations, unknown) denies heart burn symptoms at night, reports (unknown) (no (unknown) (unknown) escitalopram (units (u nknown) date) oxalate 5 mg unknown) tablet (Lexapro) 5 mg PO DAILY 06/29/22 [History (unknown) (no (unknown) (unknown) events below (units (u nknown) date) 90%. States he is unknown) no longer having morning headaches. States (unknown) (no (unknown) (unknown) ezetimibe [From (units (unknown) date) Vytorin] Adverse unknown) Reaction (Mild, Verified 06/29/22 15:05) (unknown) (no (unknown) (unknown) findings (units (unkno wn) date) discussed. unknown) Patient's compliance is excellent with positive clinical (unknown) (no (unknown) (unknown) for which he (units (u nknown) date) started CPAP. unknown) After a brief course of PAP therapy, he transitioned (unknown) (no (unknown) (unknown) glucosamine HCl (units (unknown) date) 500 mg tablet 500 unknown) mg PO DAILY 07/07/21 [History Confirmed (unknown) (no (unknown) (unknown) he was again (units (un known) date) symptomatic, unknown) repeated his sleep study, and was found to have severe (unknown) (no (unknown) (unknown) household (units (unkn own) date) members: spouse unknown) (unknown) (no (unknown) (unknown) hypertension, (units ( unknown) date) hyperlipidemia, unknown) and ischemic heart disease, as well as a (unknown) (no (unknown) (unknown) little, normal (units (unknown) date) bedtime (2200), unknown) normal wake time (9932-1639), sleep schedule (unknown) (no (unknown) (unknown) marital status: (units (unknown) date) unknown) (unknown) (no (unknown) (unknown) napping daily (units ( unknown) date) with an Jay Em unknown) Sleepiness Scale score of 12/24. Drowsiness risks (unknown) (no (unknown) (unknown) nebivolol (units (unkn own) date) Adverse Reaction unknown) (Mild, Verified 06/29/22 15:05) (unknown) (no (unknown) (unknown) nocturia (4 or 5 (units (unknown) date) times per night), unknown) denies pain, denies dizziness in the morning (unknown) (no (unknown) (unknown) note carefully (units (unknown) date) and recognize, unknown) using context, where these substitutions have (unknown) (no (unknown) (unknown) occurred. If (units (u nknown) date) there are any unknown) questions, please contact the Medical Records Dept (unknown) (no (unknown) (unknown) on PAP well, (units (un known) date) sleep quality unknown) okay and daytime sleepiness Daytime Sleepiness Branch (unknown) (no (unknown) (unknown) or denies (units (unkn own) date) trouble unknown) consentrating/foc using durng the day (unknown) (no (unknown) (unknown) oxybutynin (units (unk nown) date) chloride 5 mg unknown) tablet 5 mg PO BEDTIME 12/27/21 [History Confirmed (unknown) (no (unknown) (unknown) pets and (units (unkno wn) date) animals: Yes unknown) (dog) (unknown) (no (unknown) (unknown) reports daytime (units (unknown) date) sleepiness, but unknown) has multiple other medical problems which (unknown) (no (unknown) (unknown) reports dry (units (un known) date) mouth, denies unknown) sore throat in the morning, denies nocturnal cough, d (unknown) (no (unknown) (unknown) response (units (unkno wn) date) including no unknown) snoring and good AHIflow (although increased since last (unknown) (no (unknown) (unknown) rosuvastatin 20 (units (unknown) date) mg tablet 10 mg unknown) PO DAILY 08/13/19 [History Confirmed 06/29/22] (unknown) (no (unknown) (unknown) sentences and no (units (unknown) date) audible wheezes unknown) (unknown) (no (unknown) (unknown) showed severe (units ( unknown) date) obstructive sleep unknown) apnea.?For this he has been on nasal CPAP. (unknown) (no (unknown) (unknown) simvastatin (units (un known) date) [From Vytorin] unknown) Adverse Reaction (Mild, Verified 06/29/22 15:05) (unknown) (no (unknown) (unknown) software. (units (unkno wn) date) Although every unknown) effort is made to edit content, collision center manager errors ma (unknown) (no (unknown) (unknown) spironolactone 25 (units (unknown) date) mg tablet 25 mg unknown) PO DAILY 06/29/22 [History Confirmed 06/29/22] (unknown) (no (unknown) (unknown) to assess (units (unkn own) date) effectiveness of unknown) his CPAP therapy and he was not having desaturation (unknown) (no (unknown) (unknown) to oral (units (unkno wn) date) appliance because unknown) he had chronic nasal obstruction/conge stion. By 2009 (unknown) (no (unknown) (unknown) treatment stable (units (unknown) date) on treatment unknown) (unknown) (no (unknown) (unknown) visit).?The (units (un known) date) patient is unknown) willing to continue with PAP therapy. (unknown) (no (unknown) (unknown) y occur. (units (unkno wn) date) Occasional unknown) wrong-word or 'sound-alike' substitutions may have occurred Social History date description facility [id number] Ex-smoker (finding) [facility] [id number] Ex-smoker (finding) [facility] Vital Signs date measurement value units [id number] BMI BMI 26.4 kg/m2 [id number]+0000 BP_diastolic BP_diastolic 91 mmHg [id number]+0000 BP_systolic BP_systolic 158 mmHg [id number]+0000 heart_rate heart_rate 63 /min [id number]+0000 height_metric height_metric 186.69 cm [id number]+0000 height_standard height_standard 73.5 in +0000 respiration_rate respiration_rate 14 /min +0000 temperature_metric temperature_metric 36.44 C +0000 temperature_standard temperature_standard 9 7.6 F +0000 weight_metric weight_metric 92.079 g_ code +0000 weight_standard weight_standard 92.079 g_code
[2022-09-12] MEDS ORDERED: SODIUM CHLORIDE 0.9% 1,000 ML IV STA (11:46)
[2022-09-12] MEDS ORDERED: metFORMIN 500 MG TABLET PO STA (11:47)
--- NOTE | 2022-09-12 11:47 | ED Physician Documentation ---
History of Present Illness - Stated complaint Stated Complaint: FEELS FAINT - Chief complaint Chief Complaint: Neuro - History obtained from History obtained from: Patient, Family - Additonal information Additional information: 87-year-old gentleman with history of diabetes, recent diagnosis not on meds as he had routine blood work done couple weeks ago and noted to have an A1c of 10. Previously was "prediabetic." Today he felt weak and presyncopal. There is no associated chest pain or trouble breathing. Comorbidities include A. fib on DOAC with pacemaker and longstanding hypertension. Review of Systems Ten Systems: 10 systems reviewed and negative Constitutional: reports: Fatigue Cardiac: denies: Chest pain / pressure, Palpitations Respiratory: denies: Dyspnea, Cough GI: denies: Abdominal Pain, Nausea, Vomiting, Diarrhea PD PAST MEDICAL HISTORY - Past Medical History Cardiovascular: Hypertension, High cholesterol Psych: Depression, Anxiety Musculoskeletal: Osteoarthritis - Past Surgical History Past Surgical History: Yes Cardiovascular: Pacemaker, Angioplasty HEENT: Cataracts - Present Medications Home Medications: Ambulatory Orders Medication Instructions Recorded Confirmed Apixaban [Eliquis] 5 mg PO BID 11/27/21 11/27/21 Benazepril HCl 40 mg PO BID 11/27/21 11/27/21 Carvedilol [Coreg] 25 mg PO BID 11/27/21 11/27/21 Carvedilol [Coreg] 25 mg PO BID 11/27/21 11/27/21 Cyanocobalamin (Vitamin B-12) 500 mg PO DAILY 11/27/21 11/27/21 [Vitamin B-12] Fluoxetine HCl [Prozac] 20 mg PO DAILY 11/27/21 11/27/21 Meclizine HCl [Motion Sickness] 25 mg PO Q6H PRN #10 tablet 11/27/21 [place]-3/Dha/Epa/Fish Oil [Fish Oil 1 cap PO DAILY 11/27/21 11/27/21 1,000 mg Softgel] Ondansetron Odt [Zofran] 4 mg TL Q6H PRN #10 tablet 11/27/21 Oxybutynin [Ditropan] 5 mg PO BID 11/27/21 11/27/21 Rosuvastatin Calcium [Crestor] 10 mg PO DAILY 11/27/21 11/27/21 Spironolactone [Aldactone] 25 mg PO DAILY 11/27/21 11/27/21 glucosamine HCL [Glucosamine HCl] 1,500 mg PO DAILY 11/27/21 11/27/21 Oxycodone HCl/Acetaminophen 1 - 2 each PO Q6H PRN #10 tablet 06/16/22 [Percocet 5-325 mg Tablet] metFORMIN [Glucophage] 500 mg PO BIDWM #120 tablet 09/12/22 - Allergies Allergies/Adverse Reactions: Allergies Allergy/AdvReac Type Severity Reaction Status Date / Time No Known Drug Allergies Allergy Verified 09/12/22 10:55 - Social History Does the pt smoke?: No Smoking Status: Never smoker Does the pt drink ETOH?: Yes Does the pt have substance abuse?: No - Immunizations Immunizations are current?: Yes - POLST Patient has POLST: No PD ED PE NORMAL - Vitals Vital signs reviewed: Yes - General General: Alert and oriented X 3, No acute distress - HEENT HEENT: PERRL, EOMI - Neck Neck: Supple, no meningeal sign, No bony TTP - Cardiac Cardiac: RRR, No murmur - Respiratory Respiratory: No respiratory distress, Clear bilaterally - Abdomen Abdomen: Non tender - Back Back: No CVA TTP - Derm Derm: Normal color, Warm and dry, No rash - Extremities Extremities: No edema, No calf tenderness / cord - Neuro Neuro: Alert and oriented X 3, Normal speech Results - Vitals Vitals: Vital Signs - 24 hr 09/12/22 10:43 Temperature 36.4 C L Heart Rate 59 L Respiratory 14 Rate Blood Pressure 166/73 H O2 Saturation 98 Oxygen O2 Source Room air - EKG (time done) 1150 Rate: Rate (enter#) (60) Rhythm: Paced - Labs Labs: Laboratory Tests 09/12/22 09/12/22 09/12/22 10:52 11:44 11:44 WBC 3.7 L RBC 4.58 L Hgb 13.2 L Hct 40.9 L MCV 89.3 MCH 28.8 MCHC 32.3 RDW 13.2 Plt Count 144 MPV 9.8 Neut # (Auto) 2.2 Lymph # (Auto) 1.0 L Banner # (Auto) 0.4 Eos # (Auto) 0.1 Baso # (Auto) 0.0 Absolute Nucleated RBC 0.00 Nucleated RBC % 0.0 VBG pH VBG pCO2 VBG pO2 VBG HCO3 VBG Total CO2 VBG O2 Saturation VBG Base Excess Sodium 128 L Potassium 5.2 H Chloride 94 L Carbon Dioxide 25 Anion Gap 9.0 BUN 23 H Creatinine 1.4 H Estimated GFR (MDRD) 48 L Glucose 369 H POC Whole Bld Glucose 361 H Calcium 9.7 Serum Ketones NEGATIVE 09/12/22 11:44 WBC RBC Hgb Hct MCV MCH MCHC RDW Plt Count MPV Neut # (Auto) Lymph # (Auto) Banner # (Auto) Eos # (Auto) Baso # (Auto) Absolute Nucleated RBC Nucleated RBC % VBG pH 7.354 VBG pCO2 50.9 VBG pO2 21.0 L VBG HCO3 27.7 VBG Total CO2 29.3 H VBG O2 Saturation 41.8 L VBG Base Excess 1.3 Sodium Potassium Chloride Carbon Dioxide Anion Gap BUN Creatinine Estimated GFR (MDRD) Glucose POC Whole Bld Glucose Calcium Serum Ketones PD MEDICAL DECISION MAKING - ED course ED course: 87-year-old gentleman presents with weakness and presyncope likely related to hyperglycemic diuresis. Feeling better after a liter of IV fluids. Labs showing prerenal azotemia, mild and no evidence of DKA. declined a glucometer prescription as she has one at home and plans to use that pending follow-up. Departure - Departure Disposition: 01 Home, Self Care Clinical Impression: Pre-syncope, Hyperglycemia due to diabetes mellitus, Dehydration Condition: Stable Record reviewed to determine appropriate education?: Yes Instructions: ED Dehydration, ED Diet Diabetic, ED Diabetes General Info Prescriptions: metFORMIN [Glucophage] 500 mg PO BIDWM #120 tablet Comments: You were seen today for high blood sugars related to diabetes, and weakness and dizziness likely related to dehydration from the elevated blood sugar. We are starting metformin at 500 mg twice a day. If your blood sugars persistently over 300 you can double it to 1000 mg (2 tablets) twice a day. Follow-up with your PA as scheduled. Return for new or worsening symptoms.
[2022-09-12 11:49] LABS: BASOPHILS % (AUTO) 0.3 %; EOSINOPHILS # (AUTO) 0.1 10^3/uL (0.0-0.7); EOSINOPHILS % (AUTO) 3.5 %; HCT - HEMATOCRIT 40.9 % (42.0-52.0); HGB - HEMOGLOBIN 13.2 g/dL (14.0-18.0); LYMPHOCYTES % (AUTO) 26.1 %; MEAN CORPUSCULAR HEMOGLOBIN 28.8 pg (27.0-31.0); MEAN CORPUSCULAR HGB CONC 32.3 g/dL (32.0-36.0); MEAN CORPUSCULAR VOLUME 89.3 fL (80.0-94.0); MEAN PLATELET VOLUME 9.8 fL (7.4-11.4); MONOCYTES # (AUTO) 0.4 10^3/uL (0.0-1.0); MONOCYTES % (AUTO) 11.3 %; NEUTROPHILS # (AUTO) 2.2 10^3/uL (1.5-6.6); NEUTROPHILS % (AUTO) 58.5 %; PLT - PLATELET COUNT 144 10^3/uL (130-450); RED BLOOD COUNT 4.58 10^6/uL (4.70-6.10); RED CELL DISTRIBUTION WIDTH 13.2 % (12.0-15.0); WHITE BLOOD COUNT 3.7 x10^3/uL (4.8-10.8)
[2022-09-12 11:50] LABS: VBG BASE EXCESS 1.3 mmol/L (-2 - +2); VBG HCO3 27.7 mmol/L (23-28); VBG PCO2 50.9 mmHg (41-51); VBG PH 7.354 (7.31-7.41); VBG TOTAL CO2 29.3 mmol/L (24-29)
[2022-09-12 11:51] LABS: VBG OXYGEN SATURATION 41.8 % (60-80)
[2022-09-12 12:00] LABS: BUN - BLOOD UREA NITROGEN 23 mg/dL (6-20); CALCIUM 9.7 mg/dL (8.5-10.3); CARBON DIOXIDE - CO2 25 mmol/L (21-32); CHLORIDE 94 mmol/L (101-111); CREATININE 1.4 mg/dL (0.6-1.2); GFR - MDRD 48 (>89); GLUCOSE 369 mg/dL (70-100); POTASSIUM 5.2 mmol/L (3.5-5.0); SODIUM 128 mmol/L (135-145)
[2022-09-12 12:03] LABS: KETONES, SERUM (ACETEST) NEGATIVE (NEGATIVE)
[2022-09-12 12:45] VITALS: BP 183/82
== END 2022-09-12 12:59 | disposition home or self-care (01) ==
LOC: ED 10:36
DX: E11.65 Type 2 diabetes mellitus with hyperglycemia (principal); E86.0 Dehydration
CPT/HCPCS: 36415; 80048; 82009; 82803; 85025; 93005; 96360; 99283; 99284; A9270

== ENCOUNTER 2022-10-19 13:01 | Outpatient (CLI) | payer MEDICARE, OTHER | END 2022-10-19 13:02 | disposition home or self-care (01) | LOC: NS 13:01 | PROVIDERS: ATTEND Internal Medicine | DX: Z71.3 Dietary counseling and surveillance (principal); E11.65 Type 2 diabetes mellitus with hyperglycemia; E11.22 Type 2 diabetes mellitus with diabetic chronic kidney disease; N18.30 Chronic kidney disease, stage 3 unspecified | CPT/HCPCS: 97802 ==

== ENCOUNTER 2023-05-03 14:46 | Outpatient (CLI) | payer MEDICARE, OTHER ==
[2023-05-03 16:07] LABS: BASOPHILS % (AUTO) 0.3 %; EOSINOPHILS # (AUTO) 0.1 10^3/uL (0.0-0.7); EOSINOPHILS % (AUTO) 2.4 %; HCT - HEMATOCRIT 36.9 % (42.0-52.0); LYMPHOCYTES # (AUTO) 1.1 10^3/uL (1.5-3.5); LYMPHOCYTES % (AUTO) 28.3 %; MEAN CORPUSCULAR HEMOGLOBIN 29.1 pg (27.0-31.0); MEAN CORPUSCULAR HGB CONC 32.5 g/dL (32.0-36.0); MEAN CORPUSCULAR VOLUME 89.6 fL (80.0-94.0); MEAN PLATELET VOLUME 8.8 fL (7.4-11.4); MONOCYTES # (AUTO) 0.4 10^3/uL (0.0-1.0); MONOCYTES % (AUTO) 10.8 %; NEUTROPHILS # (AUTO) 2.2 10^3/uL (1.5-6.6); NEUTROPHILS % (AUTO) 57.9 %; PLT - PLATELET COUNT 149 10^3/uL (130-450); RED BLOOD COUNT 4.12 10^6/uL (4.70-6.10); RED CELL DISTRIBUTION WIDTH 14.3 % (12.0-15.0); WHITE BLOOD COUNT 3.8 x10^3/uL (4.8-10.8)
[2023-05-03 16:23] LABS: ALBUMIN 3.6 g/dL (3.2-5.5); ALKALINE PHOSPHATASE 119 IU/L (42-121); ALT ALANINE AMINOTRANSFERASE 56 IU/L (10-60); AST ASPARTATE AMINOTRANSFERASE 49 IU/L (10-42); BILIRUBIN,TOTAL 0.6 mg/dL (0.2-1.0); BUN - BLOOD UREA NITROGEN 30 mg/dL (6-20); CALCIUM 9.3 mg/dL (8.5-10.3); CARBON DIOXIDE - CO2 28 mmol/L (21-32); CHLORIDE 100 mmol/L (101-111); CHOL/HDL RATIO 2.2 (<5.0); CHOLESTEROL 110 mg/dL; CREATININE 1.5 mg/dL (0.6-1.2); GFR - MDRD 44 (>89); GLUCOSE 202 mg/dL (70-100); HDL CHOLESTEROL 49 mg/dL; LDL CHOLESTEROL,CALCULATED 42 mg/dL; LDL/HDL RATIO 0.9 (<3.6); POTASSIUM 4.7 mmol/L (3.5-5.0); SODIUM 133 mmol/L (135-145); TOTAL PROTEIN 7.2 g/dL (6.7-8.2); TRIGLYCERIDES 94 mg/dL; VLDL CHOLESTEROL 19 mg/dL
--- NOTE | 2023-05-03 20:47 | Ultrasound Report ---
PROCEDURE: Retroperitoneal INDICATIONS: DISORDER OF KIDNEY AND URETER TECHNIQUE: Real-time scanning was performed of the retroperitoneal organs, with image documentation. COMPARISON: CT angiogram of abdomen and pelvis dated 06/16/2022. FINDINGS: Kidneys: Kidneys are normal in size. Right kidney measures 11.2 cm long; left kidney measures 11.7 cm long. Right renal cortical thickness is 1.25 cm; left renal cortical thickness is 1.59 cm. Multip le right renal cysts are seen measures up to 6.7 x 4 x 6.3 cm in size in upper pole of right kidney. Solid appearing hypoechoic lesion is noted in mid pole of right kidney measures 2.8 x 2.5 x 2.7 cm in size. 8 mm nonobstructing stone in mid pole of right kidney is seen. Simple cyst in lower pole of le ft kidney is also seen measures 2.2 x 2.1 x 2.3 cm in size. No hydronephrosis. No obstructing renal s tone. Bladder: Pre-void bladder volume is 259.2 mL. Post-void residual is 149.1 mL. Pre-void images demo nstrate no intraluminal masses or stones. Bladder wall diverticulum is seen. On pre-void images, cameron ateral ureteral jets are noted with color Doppler interrogation. (Of note, ureteral jets may not be detectable in up to 25% of cases due to insufficient differences in specific gravity between ureteral and bladder urine). Miscellaneous: No free abdominal fluid. IMPRESSION: 1. 2.8 x 2.5 x 2.7 cm solid appearing lesion involving mid pole of right kidney lateral cortex which was also noted on previous CT angiogram of abdomen and pelvis study and is concerning for renal cell carcinoma. 2. Additional bilateral renal cysts and nonobstructing right renal calculus as described above. No hy dronephrosis. 3. Bladder wall diverticulum. No bladder wall thickening or discrete bladder wall mass. Moderate to l arge amount of postvoid residual. Reviewed by: Sawyer Garcia MD on 05/03/2023 8:46 PM PDT Approved by: Sawyer Garcia MD on 05/03/2023 8:46 PM PDT Station ID: [id number]
== END 2023-05-03 14:47 | disposition home or self-care (01) ==
LOC: DI 14:46
PROVIDERS: ATTEND Physician Assistant
DX: N28.9 Disorder of kidney and ureter, unspecified (principal); N28.1 Cyst of kidney, acquired; N32.3 Diverticulum of bladder; E11.9 Type 2 diabetes mellitus without complications; I10 Essential (primary) hypertension; E78.5 Hyperlipidemia, unspecified
CPT/HCPCS: 36415; 80053; 80061; 83721; 84153; 85025

== ENCOUNTER 2023-05-26 08:49 | Outpatient (CLI) | payer MEDICARE, OTHER ==
[2023-05-26] MEDS ORDERED: iohexoL-300 100 ML VIAL ONE ×2 (09:01)
[2023-05-26] MEDS ORDERED: iohexoL-300 100 ML VIAL IVP ONE (09:47)
--- NOTE | 2023-05-26 22:04 | CT Report ---
PROCEDURE: ABDOMEN W/WO INDICATIONS: RENAL LESION TECHNIQUE: After the administration of contrast, 5 mm thick sections acquired from the diaphragms to the symphys is. 5 mm thick coronal and sagittal reformats were acquired. For radiation dose reduction, the foll owing was used: automated exposure control, adjustment of mA and/or kV according to patient size. COMPARISON: Ultrasound on 06/02/2023 FINDINGS: Image quality: Excellent. ABDOMEN: Lung bases: Lung bases are clear. Heart size is normal. Solid organs: Liver: The liver has no mass or intrahepatic biliary ductal dilatation. The liver has an irregular c ontour suspicious for cirrhosis. Biliary: The gallbladder contains layering gallstones. No wall thickening or pericholecystic fluid. [ ] Pancreas: The pancreas has no mass or ductal dilatation. No surrounding inflammation. Spleen: Normal size. No mass. Adrenal glands: No hypertrophy or nodules. Kidneys: The right kidney has a 2.5 cm rounded mass in the midpole lateral cortex. The mass measures 52 Hounsfield units on noncontrast, and arterial phase images. No appreciable enhancement is noted on postcontrast images.Multiple additional cysts measuring up to 4.4 cm are present in the right kidney and one cyst is present in the left kidney. Bowel: The distal esophagus and stomach are normal. The small bowel has a normal caliber and appeara nce. The terminal ileum is normal. There is diverticulosis without evidence of acute diverticulitis . Free air/free fluid: No free air or free fluid. Abdominal wall: No abdominal wall mass or hernia. Retroperitoneum: No retroperitoneal or mesenteric adenopathy by size criteria. Aorta and inferior ve na cava are normal in size. Lymph nodes: No adenopathy. Bones: No suspicious bony lesions. No vertebral body compression fractures. PELVIS: Genitourinary: Bladder wall thickness is normal. Miscellaneous: No inguinal hernias or adenopathy. Bones: No suspicious bony lesions. No vertebral body compression fractures. IMPRESSION: 1. 2.5 cm round mass in the right midpole lateral cortex is unchanged compared to CT on 06/16/2022 and prior ultrasound on 05/03/2023. Differential diagnosis includes a renal cell carcinoma. This has been stable for one year since 05/03/2023. 2. Multiple simple bilateral renal cysts. Reviewed by: Kaushik Fisher on 05/26/2023 9:02 PM AKDT Approved by: Kaushik Fisher on 05/26/2023 9:02 PM DENISE Station ID: [id number]
== END 2023-05-26 08:50 | disposition home or self-care (01) ==
LOC: DI 08:49
PROVIDERS: ATTEND Urology
DX: N28.9 Disorder of kidney and ureter, unspecified (principal); N28.1 Cyst of kidney, acquired
CPT/HCPCS: 74170; Q9967

== ENCOUNTER 2023-09-01 08:08 | Emergency (ER) | payer MEDICARE, OTHER ==
--- NOTE | 2023-09-01 08:29 | ED Physician Documentation ---
PD HPI HEADACHE - Stated complaint Stated Complaint: HEADACHE - Chief complaint Chief Complaint: Neuro - History obtained from History obtained from: Patient - History of Present Illness Timing - onset: How many days ago (3) Timing - onset during: Rest, Light activity Timing - duration: Days (3) Timing - details: Gradual onset, Still present (initally onset of pressure type pain/ headache left frontal to periorbital area that has sprea to frontal both sides and mid facial. Some nasal congestion. No fever. No injury. No change in vision. No focal weakness nor aphasia.) Worst headache ever?: No: Worst headache ever? Location: Front Quality: Throbbing, Aching Associated symptoms: Other (pressure feeling frontal head and periorbital). No: Fever, Nausea, Weakness, Numbness, Eye pain Improved by: Rest. No: Dark room, Quiet Worsened by: No: Light, Noise Contributing factors: No: Anticoagulated (previously on DOAC but has been off it for about 6 months.), Hypertension, Recent illness, Trauma Similar symptoms before: Has not had sx before Review of Systems Constitutional: denies: Fever, Chills Nose: reports: Congestion, Sinus pressure / pain. denies: Rhinorrhea / runny nose Throat: denies: Sore throat Respiratory: denies: Cough GI: denies: Nausea, Vomiting, Diarrhea Skin: denies: Rash, Lesions Neurologic: reports: Headache. 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 ) Psych: Depression, Anxiety Musculoskeletal: Osteoarthritis - Past Surgical History Past Surgical History: Yes Cardiovascular: Pacemaker, Angioplasty HEENT: Cataracts - Present Medications Home Medications: Ambulatory Orders Medication Instructions Recorded Confirmed Apixaban [Eliquis] 5 mg PO BID 11/27/21 11/27/21 Benazepril HCl 40 mg PO BID 11/27/21 11/27/21 Cyanocobalamin (Vitamin B-12) 500 mg PO DAILY 11/27/21 11/27/21 [Vitamin B-12] Fluoxetine HCl [Prozac] 20 mg PO DAILY 11/27/21 11/27/21 Meclizine HCl [Motion Sickness] 25 mg PO Q6H PRN #10 tablet 11/27/21 [place]-3/Dha/Epa/Fish Oil [Fish Oil 1 cap PO DAILY 11/27/21 11/27/21 1,000 mg Softgel] Ondansetron Odt [Zofran] 4 mg TL Q6H PRN #10 tablet 11/27/21 Oxybutynin [Ditropan] 5 mg PO BID 11/27/21 11/27/21 Rosuvastatin Calcium [Crestor] 10 mg PO DAILY 11/27/21 11/27/21 Spironolactone [Aldactone] 25 mg PO DAILY 11/27/21 11/27/21 carvediloL [Coreg] 25 mg PO BID 11/27/21 11/27/21 carvediloL [Coreg] 25 mg PO BID 11/27/21 11/27/21 glucosamine HCL [Glucosamine HCl] 1,500 mg PO DAILY 11/27/21 11/27/21 Oxycodone HCl/Acetaminophen 1 - 2 each PO Q6H PRN #10 tablet 06/16/22 [Percocet 5-325 mg Tablet] metFORMIN [Glucophage] 500 mg PO BIDWM #120 tablet 09/12/22 Amoxicillin 500 mg PO TID #21 cap 09/01/23 Cetirizine [ZyrTEC] 10 mg PO DAILY #15 tablet 09/01/23 Fluticasone [Flonase] 1 sprays ANTHONY BID 30 Days #16 gm 09/01/23 HYDROcod/ACETAM 5/325 [[place] 5/325] 1 ea PO Q6H PRN #18 tablet 09/01/23 Naproxen 500 mg PO BID #15 09/01/23 - Allergies Allergies/Adverse Reactions: Allergies Allergy/AdvReac Type Severity Reaction Status Date / Time No Known Drug Allergies Allergy Verified 09/12/22 10:55 - Social History Does the pt smoke?: No Smoking Status: Never smoker Does the pt drink ETOH?: Yes Does the pt have substance abuse?: No - Immunizations Immunizations are current?: Yes - POLST Patient has POLST: No PD ED PE NORMAL - Vitals Vital signs reviewed: Yes - General General: Alert and oriented X 3, No acute distress, Well developed/nourished - HEENT HEENT: Ears normal, Moist mucous membranes, Pharynx benign, Other (no skin lesions/rash, no tenderness of facial/scalp skin and particular not tender in temples. ) - Neck Neck: Supple, no meningeal sign, No adenopathy - Cardiac Cardiac: RRR, No murmur - Respiratory Respiratory: Clear bilaterally - Derm Derm: Normal color, Warm and dry, No rash - Extremities Extremities: Normal ROM s pain - Neuro Neuro: Alert and oriented X 3, j2ee java developer 2-12 intact, No motor deficit, No sensory deficit, Normal speech Eye Opening: Spontaneous Motor: Obeys Commands Verbal: Oriented GCS Score: 15 Results - Vitals Vitals: Oxygen O2 Source Room air - Labs Labs: Laboratory Tests 09/01/23 09/01/23 09/01/23 09:07 09:07 09:07 WBC 4.5 L RBC 4.32 L Hgb 12.8 L Hct 39.2 L MCV 90.7 MCH 29.6 MCHC 32.7 RDW 13.7 Plt Count 152 MPV 8.9 Neut # (Auto) 3.1 Lymph # (Auto) 0.7 L Brooks # (Auto) 0.5 Eos # (Auto) 0.1 Baso # (Auto) 0.0 Absolute Nucleated RBC 0.00 Nucleated RBC % 0.0 ESR 45 H Sodium 133 L Potassium 4.7 H Chloride 99 L Carbon Dioxide 24 Anion Gap 10.0 BUN 38 H Creatinine 1.3 Estimated GFR (MDRD) 52 L Glucose 257 H Calcium 9.9 Total Bilirubin 0.8 AST 20 ALT 32 Alkaline Phosphatase 103 C-Reactive Protein 0.9 H Total Protein 7.0 Albumin 3.8 Globulin 3.2 Albumin/Globulin Ratio 1.2 Lipase 26 Nasal Adenovirus (PCR) Nasal B. parapertussis DNA (PCR) Nasal Coronavir 229E PCR Nasal Coronavir HKU1 PCR Nasal Coronavir NL63 PCR Nasal Coronavir OC43 PCR Nasal Enterovir/Rhinovir PCR Nasal Influenza B PCR Nasal Influenza A PCR Nasal Parainfluen 1 PCR Nasal Parainfluen 2 PCR Nasal Parainfluen 3 PCR Nasal Parainfluen 4 PCR Nasal RSV (PCR) Nasal B.pertussis DNA PCR Nasal C.pneumoniae (PCR) Anthony Human Metapneumo PCR Nasal M.pneumoniae (PCR) Nasal SARS-CoV-2 (PCR) 09/01/23 09:22 WBC RBC Hgb Hct MCV MCH MCHC RDW Plt Count MPV Neut # (Auto) Lymph # (Auto) Brooks # (Auto) Eos # (Auto) Baso # (Auto) Absolute Nucleated RBC Nucleated RBC % ESR Sodium Potassium Chloride Carbon Dioxide Anion Gap BUN Creatinine Estimated GFR (MDRD) Glucose Calcium Total Bilirubin AST ALT Alkaline Phosphatase C-Reactive Protein Total Protein Albumin Globulin Albumin/Globulin Ratio Lipase Nasal Adenovirus (PCR) NOT DETECTED Nasal B. parapertussis DNA (PCR) NOT DETECTED Nasal Coronavir 229E PCR NOT DETECTED Nasal Coronavir HKU1 PCR NOT DETECTED Nasal Coronavir NL63 PCR NOT DETECTED Nasal Coronavir OC43 PCR NOT DETECTED Nasal Enterovir/Rhinovir PCR NOT DETECTED Nasal Influenza B PCR NOT DETECTED Nasal Influenza A PCR NOT DETECTED Nasal Parainfluen 1 PCR NOT DETECTED Nasal Parainfluen 2 PCR NOT DETECTED Nasal Parainfluen 3 PCR NOT DETECTED Nasal Parainfluen 4 PCR NOT DETECTED Nasal RSV (PCR) NOT DETECTED Nasal B.pertussis DNA PCR NOT DETECTED Nasal C.pneumoniae (PCR) NOT DETECTED Anthony Human Metapneumo PCR NOT DETECTED Nasal M.pneumoniae (PCR) NOT DETECTED Nasal SARS-CoV-2 (PCR) NOT DETECTED - Rads (name of study) head CT Relevant Findings:: Prelim report reviewed (no intracranial pathology. Sinuses multiply are opacified. ), EMP independent interpretation of test PD Medical Decision Making - ED course Complexity details: considered differential (frontal headache and pressure. No URI symptoms generally but does have nasal congestion. No neuro deficits. Does have new headache. Given age and new LOMBARDO, shared discussion for CT head. ), d/w patient Reviewed Lab Results: head CT is negative for intracranaial pathology. Sinuses generally are opacified c/w sinus disease. Given the location of his headache, this does seem to corrrelate with the idea of sinusitis. He does have elevated ESR of 45 with CRP being just mildly elevated. He does not have any tenderness of the scalp nor skin, particularly in episcopal areas, and the sinus findings give good alternative diagnosis, so I do not feel this represents arteritis. If not improving well with sinusitis treatment, could reconsider and recheck ESR/etc. Given his elevated blood sugar generally, I will hold on oral steroids as a Rx but gave single dose here. Will treat with abx, as new headache would suggest increasing pressure and thus suggest infection. shared decision with discussion for short term opioid pain meds. Departure - Departure Disposition: 01 Home, Self Care Clinical Impression: Frontal headache, Sinusitis, acute Condition: Stable Record reviewed to determine appropriate education?: Yes Instructions: ED Cephalgia Unspecified, ED Sinusitis Abx Tx Prescriptions: Amoxicillin 500 mg PO TID #21 cap Fluticasone [Flonase] 1 sprays ANTHONY BID 30 Days #16 gm Naproxen 500 mg PO BID #15 HYDROcod/ACETAM 5/325 [[place] 5/325] 1 ea PO Q6H PRN #18 tablet PRN Reason: Pain Cetirizine [ZyrTEC] 10 mg PO DAILY #15 tablet Comments: The CT of your head appears normal without any signs of bleeding, swelling, tumors etc. within the brain compartment. The sinuses appear diffusely fluid- filled with some inflammation. That is the main area of your pain at this point so I presume some sinus inflammation/infection is causing your symptoms. On blood tests there is some elevation of some inflammatory markers but you do not have tenderness on the face for skin to suggest inflammation of the blood vessels. There is no rash to suggest shingles. We will treat as a sinus infection at this point with the combination of anti-inflammatories, antibiotics, antihistamine and a steroid nasal spray. Add Tylenol every 4-6 hours if needed for pain or hydrocodone's/acetaminophen if needed for worse pain. I sent your prescriptions to [facility] pharmacy. Recheck if not improving well over the next several days and follow-up with your primary if worsening or other new symptoms develop such as rash, facial tenderness, visual changes, fevers etc. I am prescribing a short course of narcotic pain medication for you. These are potentially dangerous and addictive medications that should be used carefully. These medications may constipate you. Take an [id number] stool softener such as docusate twice daily with plenty of water while taking these me dications. If you go 24 hours without a bowel movement, take [id number] MiraLAX, per package instructions. Do not drink or drive while taking these medications. If you received narcotic or sedating medications while in the emergency department do not drive for 24 hours. Store this medication in a safe, secure place and out of reach of children. It is a violation of federal law to give or sell this medication to another person or to use in a manner other than prescribed. The ED will not refill narcotic prescriptions, including prescriptions lost or stolen. You can dispose of unwanted medications at the [facility]'s office or at several pharmacies such as [facility]. Forms: PCP List Discharge Date/Time: 09/01/23 11:18
[2023-09-01] MEDS ORDERED: KETOROLAC 15 MG/ML VIAL IVP STA (08:55)
[2023-09-01] MEDS ORDERED: HYDROmorphone 0.5 MG/0.5 ML SYRINGE IVP STA (08:55)
[2023-09-01 09:13] LABS: BASOPHILS % (AUTO) 0.2 %; EOSINOPHILS # (AUTO) 0.1 10^3/uL (0.0-0.7); EOSINOPHILS % (AUTO) 2.2 %; HCT - HEMATOCRIT 39.2 % (42.0-52.0); HGB - HEMOGLOBIN 12.8 g/dL (14.0-18.0); LYMPHOCYTES # (AUTO) 0.7 10^3/uL (1.5-3.5); LYMPHOCYTES % (AUTO) 16.2 %; MEAN CORPUSCULAR HEMOGLOBIN 29.6 pg (27.0-31.0); MEAN CORPUSCULAR HGB CONC 32.7 g/dL (32.0-36.0); MEAN CORPUSCULAR VOLUME 90.7 fL (80.0-94.0); MEAN PLATELET VOLUME 8.9 fL (7.4-11.4); MONOCYTES # (AUTO) 0.5 10^3/uL (0.0-1.0); MONOCYTES % (AUTO) 10.6 %; NEUTROPHILS # (AUTO) 3.1 10^3/uL (1.5-6.6); NEUTROPHILS % (AUTO) 70.4 %; PLT - PLATELET COUNT 152 10^3/uL (130-450); RED BLOOD COUNT 4.32 10^6/uL (4.70-6.10); RED CELL DISTRIBUTION WIDTH 13.7 % (12.0-15.0); WHITE BLOOD COUNT 4.5 x10^3/uL (4.8-10.8)
[2023-09-01 09:24] LABS: ALBUMIN 3.8 g/dL (3.2-5.5); ALBUMIN/GLOBULIN RATIO 1.2 (1.0-2.2); BILIRUBIN,TOTAL 0.8 mg/dL (0.2-1.0); CALCIUM 9.9 mg/dL (8.5-10.3); CREATININE 1.3 mg/dL (0.6-1.3); CRP - C-REACTIVE PROTEIN 0.9 mg/dL (<0.5); POTASSIUM 4.7 mmol/L (3.5-4.5)
--- NOTE | 2023-09-01 10:13 | CT Report ---
PROCEDURE: HEAD WO INDICATIONS: headache/face pain for 2-3 days TECHNIQUE: Noncontrast 4.5 mm thick angled axial sections acquired from the foramen magnum to the vertex. For r adiation dose reduction, the following was used: automated exposure control, adjustment of mA and/or kV according to patient size. COMPARISON: To 622, 11/27/2021 FINDINGS: Image quality: Excellent. CSF spaces: Basal cisterns are patent. No extra-axial fluid collections. Ventricles are normal in size and shape. Brain: No midline shift. No intracranial masses or hemorrhage. Younger-white matter interface is norm al. Age-appropriate brain parenchymal volume loss and chronic small vessel ischemic change can be se en. Atherosclerotic calcification is seen. Skull and face: Calvarium and visualized facial bones are intact, without suspicious lesions. Sinuses: There is complete opacification of the right sphenoid sinus. There is moderate mucosal thick ening involving the posterior left sphenoid sinus. There is focal opacification of the posterior righ t ethmoid air cells. No significant abnormal fluid can be seen within the mastoid air cells. IMPRESSION: No acute intracranial pathology. No intracranial hemorrhage is seen. Paranasal sinus disease noted. Reviewed by: Luke Sandra MD on 09/01/2023 9:12 AM DENISE Approved by: Luke Sandra MD on 09/01/2023 9:12 AM DENISE Station ID: [id number]
[2023-09-01 10:15] LABS: B. PARAPERTUSSIS- RESP PCR PAN NOT DETECTED; B. PERTUSSIS- RESP PCR PANEL NOT DETECTED; C. PNEUMONIAE- RESP PCR PANEL NOT DETECTED; CORONAVIRUS 229E-RESP PCR NOT DETECTED; CORONAVIRUS HKU1-RESP PCR NOT DETECTED; CORONAVIRUS NL63-RESP PCR NOT DETECTED; CORONAVIRUS OC43-RESP PCR NOT DETECTED; HUMAN METAPNEUMOVIRUS NOT DETECTED; INFLUENZA A- RESP PCR PANEL NOT DETECTED; INFLUENZA B - RESP PCR PANEL NOT DETECTED; M. PNEUMONIAE- RESP PCR PANEL NOT DETECTED; PARAINFLUENZA VIRUS 1 NOT DETECTED; PARAINFLUENZA VIRUS 2 NOT DETECTED; PARAINFLUENZA VIRUS 3 NOT DETECTED; PARAINFLUENZA VIRUS 4 NOT DETECTED; RHINOVIRUS/ENTEROVIRUS NOT DETECTED; RSV- RESP PCR PANEL NOT DETECTED; SARS-CoV-2 -RESP PCR PANEL NOT DETECTED
[2023-09-01] MEDS ORDERED: AMOXICILLIN 250 MG CAPSULE PO STA (10:43)
[2023-09-01] MEDS ORDERED: CETIRIZINE 10 MG TABLET PO STA (10:44)
[2023-09-01 11:05] VITALS: BP 161/83; O2SAT 99
== END 2023-09-01 11:18 | disposition home or self-care (01) ==
LOC: ED 08:08
DX: R51.9 Headache, unspecified (principal); J01.90 Acute sinusitis, unspecified; I10 Essential (primary) hypertension; Z20.822 Contact with and (suspected) exposure to COVID-19
CPT/HCPCS: 36415; 70450; 80053; 83690; 85025; 85651; 86140; 87633; 96374; 99284; A9270; J1170